=== PATIENT | male | born 1945 | race Caucasian/White ===

== ENCOUNTER → 2017-01-01 | Outpatient (CLI) | payer OTHER ==
[~2017-01-01] MED LIST: ACET500C OR; ANDROGEL TOP; ASCO25TA PO; ASPI325T28 PO; ATOR1TAB21 PO; BABY81CH OR; BACL1TAB9 PO; CALCTAB22 PO; CELE100C PO; CRANBERRY PO; CYCL10TA PO; Cranberry PO; FE G325T PO; FERR325T75 PO; FINA5TAB2 PO; FISH1000 OR; FLOM5CAP PO; GLUC500T3 OR; HYDR-3713 PO; IBUP600T OR; LEVO25TA2 OR; LIDO5DIS EX; METO25TAB PO; MS C15TA8 PO; MULTIVIT PO; NAPR250T OR; OTC PAIN CREAM TOP; PLAV1TAB2 PO; PREDOPD OD; STOO100C PO; VICO; VICO5TAB16 PO; VICODIN PO; VITA400C OR; VITA500T OR; VITAMIN B COMPLE1 OR; VOLT1GEL EX; ZANA4CAP OR; [UNRECOGNIZED DRUG - OTHER] PO; [UNRECOGNIZED DRUG - OTHER] PO; biotin PO; cinnamon PO; flaxseed PO; omega 3 PO; omega PO; vitamin c PO
--- NOTE | 2017-01-12 01:07 | ECWPNPC ---
PATIENT NAME: LOUISE PRECIADO : 1945 GENDER: MALE VISIT DATE: 01/01/2017 DISCHARGE DATE: 01/01/17 1438 VISIT LOCKED DATE TIME: PHYSICIAN: LEELEE LAZO RESOURCE: LEELEE LAZO REASON FOR APPOINTMENT 1. BACK HISTORY OF PRESENT ILLNESS HISTORY OF PRESENT ILLNESS: PAIN THE PATIENT DESCRIBES THE PAIN... THE PATIENT DESCRIBES THE PAIN... THE PATIENT DESCRIBES THE PAIN... PAIN THE PATIENT DESCRIBES THE PAIN... THE PATIENT DESCRIBES THE PAIN... THE PATIENT DESCRIBES THE PAIN... 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 FALL RISK SCREENING: SCREENING :NO FALLS IN THE PAST YEAR CURRENT MEDICATIONS TAKING FISH OIL 1000 MG CAPSULE 1 CAPSULE ORALLY ONCE A DAY TAKING VITAMIN C 500 MG CAPSULE ORALLY TAKING VITAMIN B-COMPLEX TABLET ORALLY TAKING CRANBERRY 450 MG CAPSULE ORALLY TAKING FLAX SEED OIL 1300 MG CAPSULE ORALLY TAKING CINNAMON PLUS CHROMIUM 200-1000 MCG-MG CAPSULE ORALLY TAKING VITAMIN D-3 1000 UNIT CAPSULE 1 CAPSULE ORALLY ONCE A DAY TAKING TYLENOL GO TABS EXTRA STRENGTH 500 MG TABLET CHEWABLE 1 TAB(S) ORALLY EVERY 6 HRS NEEDED TAKING ASPIRIN 325 MG TABLET 1 TABLET ORALLY ONCE A DAY TAKING METOPROLOL TARTRATE 25 MG TABLET 1/2 TABLET ORALLY DAILY TAKING TAMSULOSIN HCL 0.4 MG CAPSULE EXTENDED RELEASE 24 HOUR 1 CAPSULE 30 MINUTES AFTER THE SAME MEAL EACH DAY ORALLY ONCE A DAY TAKING ATORVASTATIN CALCIUM 20 MG TABLET 1 TABLET ORALLY ONCE A DAY TAKING FINASTERIDE 5 MG TABLET 1 TABLET ORALLY ONCE A DAY TAKING LEVOTHYROXINE SODIUM 50 MCG TABLET 1 TABLET ORALLY ONCE A DAY TAKING HYDROCODONE-ACETAMINOPHEN 5-325 MG TABLET 1 TABLET NEEDED ORALLY Q8H MDD3 NOT-TAKING VITAMIN E 400 UNIT CAPSULE 1 CAPSULE ORALLY ONCE A DAY NOT-TAKING DOCUSATE SODIUM 100 MG CAPSULE 1 CAPSULE NEEDED ORALLY ONCE A DAY NOT-TAKING MORPHINE SULFATE 15 MG TABLET 1 TABLET NEEDED ORALLY EVERY 4 HRS NOT-TAKING ZOFRAN 4 MG TABLET 1 TABLET ORALLY PRN NAUSEA MEDICATION LIST REVIEWED AND RECONCILED WITH THE PATIENT PAST MEDICAL HISTORY MSSA SEPSIS DDD MULTIPLE BACK SURGERIES WITH DORSAL COLUMN STIMULATOR HTN BPH PROSTATITIS CAD S/P STENTS AND [place] ALLERGIES N.K.D.A. SURGICAL HISTORY BACK SURGERY 1971 LEFT EYE SURGERY 1981 DETACHED RETINA L EYE 1982 BILATERAL CARPAL TUNNEL 1992 AND 1993 APPENDIX 2001 BACK STIMULATOR 2008 HEART STENTS 2012 RIGHT ROTATOR CUFF REPAIR 2014 BILATERAL CATAARACTS 2014 HOSPITALIZATION/MAJOR DIAGNOSTIC PROCEDURE RELATED TO SURGERIES REVIEW OF SYSTEMS REVIEWED BY: PROVIDER: LEELEE ORO . CONSTITUTIONAL: ANY CHANGE IN YOUR MEDICAL CONDITION? NO . CHILLS NO . FEVER NO . INFECTION: DO YOU HAVE NEW INFECTIONS? NO . DO YOU HAVE HISTORY OF MRSA? NO . MUSCULOSKELETAL: ANY NEW PATTERNS OF PAIN OR NUMBNESS? NO . GASTROENTEROLOGY: ANY NEW CHANGE IN BOWEL CONTROL? NO . GENITOURINARY: ANY NEW CHANGE IN BLADDER CONTROL? NO . IS THERE A CHANCE YOU COULD BE ? NO . HEMATOLOGY/LYMPH: DO YOU TAKE ANY BLOOD THINNERS? (FOR EXAMPLE- COUMADIN, PLAVIX, AGGRENOX, PLATEL, PRADAXA, OR XARELTO) NO . WHEN WAS YOUR LAST DOSE? DATE: TIME: . NEUROLOGY: HAVE YOU FALLEN IN THE PAST 6 MONTHS? NO . ANY NEW EXTREMITY NUMBNESS OR WEAKNESS? NO . CARDIOLOGY: DO YOU HAVE A PACEMAKER OR DEFIBRILLATOR? NO . RESPIRATORY: HAVE YOU BEEN SICK IN THE PAST WEEK? NO . FEVER NO . FLU LIKE SYMPTOMS? NO . COUGH NO . INTEGUMENTARY: DO YOU HAVE ANY RASHES OR OPEN SORES? NO . ALLERGIC/IMMUNO: ARE YOU ALLERGIC TO SHELLFISH OR IV DYE? NO . ANY NEW ALLERGIES? NO . PSYCHIATRIC: DO YOU HAVE THOUGHTS OF HURTING YOURSELF OR SOMEONE ELSE? NO . ARE YOU ABUSED, NEGLECTED, OR IN AN UNSAFE ENVIRONMENT? NO . ENDOCRINOLOGY: ARE YOU DIABETIC? NO . OTHER: DO YOU NEED ANY PRESCRIPTIONS? NO . IF YES, PLEASE LIST: ____ . ANY NEW PROBLEMS WITH YOUR MEDICATIONS? NO . WHEN DID YOU LAST EAT? ____ . WHEN DID YOU LAST DRINK? ____ . WHAT DID YOU LAST DRINK? ____ . NAME OF PERSON DRIVING YOU HOME? ____ . DO YOU HAVE ANY OTHER QUESTIONS OR CONCERNS NO . VITAL SIGNS WT 233.0 LBS, HT 72 IN, BMI 31.60 INDEX, BP 117/69 MM HG, HR 63 /MIN, RR 18 /MIN, TEMP 97.7 F, OXYGEN SAT % 96%, SAFE IN ENV? (Y/N) Y, NA INITIALS TL 1405, REVIEWED BY: EM. EXAMINATION GENERAL EXAMINATION: LUNGS:LUNG SOUNDS ARE CLEAR. HEART:HEART RATE REGULAR. MUSCULOSKELETAL:*, MUSCLE STRENGTH TESTING 5/5 BILATERAL, PALPATION: NEGATIVE FOR PAIN OVER L/S SPINE. NEGATIVE FOR PAIN OVER L/S PARASPINALS. ASSESSMENTS POST LAMINECTOMY SYNDROME - M96.1 (PRIMARY) CHRONIC PRESCRIPTION OPIATE USE - Z79.891 TREATMENT POST LAMINECTOMY SYNDROME REFILL HYDROCODONE-ACETAMINOPHEN TABLET, 5-325 MG, 1 TABLET NEEDED, ORALLY, Q8H MDD3, 30 DAY(S), 90, REFILLS 0 NOTES: ISTOP REGISTRY REVIEWED AND DEMNOSTRATES COMPLLIANCE. BRINGS IN MEDICATIONS WHICH IS APPROPRIATE FOR WHAT WAS DISPENSED. RECENT URINE TOXICOLOGY REVIEWED. NO UNAUTHORIZED MEDICATIONS. NO ILLICIT SUBSTANCES AND PRESCRIBED MEDICATIONS WERE PRESENT. , RISKS AND BENEFITS OF NARCOTIC/OPIOD MEDICATIONS WERE REVIEWED WITH PATIENT - THIS INCLUDES BUT IS NOT LIMITED TO RISK OF DEPENDANCE/DEVELOPMENT OF ADDICTION, MOOD DISTURBANCE AND DEPRESSION, OSTEOPOROSIS, HORMONAL AND LABIDAL CHANGES, RESPIRATORY DEPRESSION AND . PATIENT IS ADVISED NOT TO DRIVE WHILE ON THESE MEDICATIONS. PROCEDURE CODES FA211 ESTABILISHED PATIENT [facility] CHARGE DISPOSITION & COMMUNICATION FOLLOW UP 3 MONTHS ELECTRONICALLY SIGNED BY PREETHI KENNEDY ON 01/11/2017 AT 02:07 PM EDT DISCLAIMER : THIS IS A VISIT SUMMARY EXTRACTED FROM THE [employer] CHART. IT IS NOT A COPY OF THE [employer] PROGRESS NOTE. [facility]
== END ==
LOC: M PAIN 14:20
PROVIDERS: ATTEND Nurse Practitioner Family
DX: M96.1 Postlaminectomy syndrome, not elsewhere classified (principal); M54.5 Low back pain; G89.29 Other chronic pain; Z79.891 Long term (current) use of opiate analgesic; Z79.82 Long term (current) use of aspirin; Z79.899 Other long term (current) drug therapy

== ENCOUNTER → 2017-04-23 | Outpatient (CLI) | payer OTHER ==
--- NOTE | 2017-05-09 01:00 | ECWPNPC ---
PATIENT NAME: LOUISE PRECIADO : 1945 GENDER: MALE VISIT DATE: 04/23/2017 DISCHARGE DATE: 04/23/17 1458 VISIT LOCKED DATE TIME: PHYSICIAN: LEELEE LAZO RESOURCE: LEELEE LAZO REASON FOR APPOINTMENT 1. MEDS HISTORY OF PRESENT ILLNESS HISTORY OF PRESENT ILLNESS: PAIN THE PATIENT DESCRIBES THE PAIN... THE PATIENT DESCRIBES THE PAIN... THE PATIENT DESCRIBES THE PAIN... THE PATIENT DESCRIBES THE PAIN... 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 FALL RISK SCREENING: SCREENING :NO FALLS IN THE PAST YEAR CURRENT MEDICATIONS TAKING FISH OIL 1000 MG CAPSULE 1 CAPSULE ORALLY ONCE A DAY TAKING VITAMIN C 500 MG CAPSULE 2 CAPS ORALLY BID TAKING VITAMIN B-COMPLEX TABLET 1 TAB ORALLY DAILY TAKING CRANBERRY 450 MG CAPSULE 1 CAP ORALLY BID TAKING FLAX SEED OIL 1300 MG CAPSULE 1 CAP ORALLY BID TAKING CINNAMON PLUS CHROMIUM 200-1000 MCG-MG CAPSULE 2 CAPS ORALLY BID TAKING VITAMIN D-3 1000 UNIT CAPSULE 1 CAPSULE ORALLY ONCE A DAY TAKING TYLENOL GO TABS EXTRA STRENGTH 500 MG TABLET CHEWABLE 1 TAB(S) ORALLY EVERY 6 HRS NEEDED TAKING ASPIRIN 325 MG TABLET 1 TABLET ORALLY ONCE A DAY TAKING METOPROLOL TARTRATE 25 MG TABLET 1/2 TABLET ORALLY BID TAKING TAMSULOSIN HCL 0.4 MG CAPSULE EXTENDED RELEASE 24 HOUR 1 CAPSULE 30 MINUTES AFTER THE SAME MEAL EACH DAY ORALLY ONCE A DAY TAKING ATORVASTATIN CALCIUM 20 MG TABLET 1 TABLET ORALLY ONCE A DAY TAKING FINASTERIDE 5 MG TABLET 1 TABLET ORALLY ONCE A DAY TAKING LEVOTHYROXINE SODIUM 50 MCG TABLET 1 TABLET ORALLY ONCE A DAY TAKING HYDROCODONE-ACETAMINOPHEN 5-325 MG TABLET 1 TABLET NEEDED ORALLY Q8H MDD3 TAKING VITAMIN E 400 UNIT CAPSULE 1 CAPSULE ORALLY ONCE A DAY DISCONTINUED DOCUSATE SODIUM 100 MG CAPSULE 1 CAPSULE NEEDED ORALLY ONCE A DAY DISCONTINUED MORPHINE SULFATE 15 MG TABLET 1 TABLET NEEDED ORALLY EVERY 4 HRS DISCONTINUED ZOFRAN 4 MG TABLET 1 TABLET ORALLY PRN NAUSEA MEDICATION LIST REVIEWED AND RECONCILED WITH THE PATIENT PAST MEDICAL HISTORY MSSA SEPSIS DDD MULTIPLE BACK SURGERIES WITH DORSAL COLUMN STIMULATOR HTN BPH PROSTATITIS CAD S/P STENTS AND [place] ALLERGIES N.K.D.A. SOCIAL HISTORY GENERAL: TOBACCO USE ARE YOU A:: FORMER SMOKER , HOW LONG HAS IT BEEN SINCE YOU LAST SMOKED?: > 10 YEARS. ALCOHOL SCREENING POINTS0 INTERPRETATIONNEGATIVE RECREATIONAL DRUG USE DRUG USE?NO CAFFEINE CAFFEINE USE?YES HOW OFTEN AND HOW MUCH? 2 CUPS COFFEE/DAY OCCUPATION: RETIRED. DIET: REGULAR. EXERCISE: WALKS, DAILY. MARITAL STATUS: . OTHERS AT HOME: SPOUSE. YAZIDI [id number] PRESYBETERIAN LANGUAGE LANGUAGES SPOKEN:ESTONIAN EDUCATION LEVEL OF EDUCATION:HIGH SCHOOL GRADUATE LEARNING BARRIERS / SPECIAL NEEDS BARRIERS TO LEARNING?NO HEARING IMPAIRED?YES : DECREASED HEARING BUT CAN'T AFFORD HEARING AIDS VISION IMPAIRED?YES :CORRECTIVE LENSES READING COGNITIVELY IMPAIRED?NO READINESS TO LEARN?YES LEARNING PREFERENCES?YES :TAPES/VIDEOS, DEMONSTRATION/VERBAL INSTRUCTION LEARNING CAPABILITIES PRESENT?YES EMOTIONAL BARRIERS?NO SPECIAL DEVICES?YES : OCC. WALKING STICK IF WALKING LONG DISTANCES CRUMB PACKER NEEDED?NO PAIN CLINIC PFS, CLERGY, PUBLIC HEALTH REFERRALS PFS REFERRAL NEEDED?NO CLERGY REFERRAL NEEDED?NO PUBLIC HEALTH REFERRAL NEEDED?NO HAS THE PATIENT BEEN EDUCATED REGARDING HIS/HER PLAN OF CARE?YES HAS THE PATIENT BEEN EDUCATED REGARDING PAIN, THE RISK FOR PAIN, THE IMPORTANCE OF EFFECTIVE PAIN MANAGEMENT, AND THE PAIN ASSESSMENT PROCESS?YES ADVANCE DIRECTIVES HEALTH CARE PROXY?NO WOULD YOU LIKE MORE INFORMATION?NO STATES HE ALREADY HAS INFORMATION DO YOU HAVE A DNR?NO WOULD YOU LIKE MORE INFORMATION?NO LIVING WILL?NO WOULD YOU LIKE MORE INFORMATION?NO POWER OF SERVICE OR WORK DISPATCHER CHIEF?NO WOULD YOU LIKE MORE INFORMATION?NO DOMESTIC VIOLENCE DO YOU FEEL SAFE IN YOUR ENVIRONMENT?YES 04/23/17 UPDATED AD. REVIEW OF SYSTEMS REVIEWED BY: PROVIDER: LEELEE ORO . CONSTITUTIONAL: ANY CHANGE IN YOUR MEDICAL CONDITION? HE NEEDS REPEAT CARPAL TUNNEL SURG., RIGHT -- THIS IS SCHEDULED FOR 05/21/17 IN [facility] . CHILLS NO . FEVER NO . INFECTION: DO YOU HAVE NEW INFECTIONS? NO . DO YOU HAVE HISTORY OF MRSA? NO . MUSCULOSKELETAL: ANY NEW PATTERNS OF PAIN OR NUMBNESS? YES, NUMBNESS RIGHT HIP X 2 MONTHS. THIS OCCURS AFTER LYING ON THE RIGHT SIDE OR STANDING FOR ANY LENGTH OF TIME. . GASTROENTEROLOGY: ANY NEW CHANGE IN BOWEL CONTROL? NO . GENITOURINARY: ANY NEW CHANGE IN BLADDER CONTROL? NO . IS THERE A CHANCE YOU COULD BE ? NO . HEMATOLOGY/LYMPH: DO YOU TAKE ANY BLOOD THINNERS? (FOR EXAMPLE- COUMADIN, PLAVIX, AGGRENOX, PLATEL, PRADAXA, OR XARELTO) NO . WHEN WAS YOUR LAST DOSE? DATE: TIME: . NEUROLOGY: HAVE YOU FALLEN IN THE PAST 6 MONTHS? NO . ANY NEW EXTREMITY NUMBNESS OR WEAKNESS? NO . CARDIOLOGY: DO YOU HAVE A PACEMAKER OR DEFIBRILLATOR? NO . RESPIRATORY: HAVE YOU BEEN SICK IN THE PAST WEEK? NO . FEVER NO . FLU LIKE SYMPTOMS? NO . COUGH NO . INTEGUMENTARY: DO YOU HAVE ANY RASHES OR OPEN SORES? NO . ALLERGIC/IMMUNO: ARE YOU ALLERGIC TO SHELLFISH OR IV DYE? NO . ANY NEW ALLERGIES? NO . PSYCHIATRIC: DO YOU HAVE THOUGHTS OF HURTING YOURSELF OR SOMEONE ELSE? NO . ARE YOU ABUSED, NEGLECTED, OR IN AN UNSAFE ENVIRONMENT? NO . ENDOCRINOLOGY: ARE YOU DIABETIC? NO . OTHER: DO YOU NEED ANY PRESCRIPTIONS? YES . IF YES, PLEASE LIST: HYDROCODONE . ANY NEW PROBLEMS WITH YOUR MEDICATIONS? NO . WHEN DID YOU LAST EAT? ____ . WHEN DID YOU LAST DRINK? ____ . WHAT DID YOU LAST DRINK? ____ . NAME OF PERSON DRIVING YOU HOME? ____ . DO YOU HAVE ANY OTHER QUESTIONS OR CONCERNS NO . VITAL SIGNS WT 233 LBS, HT 72 IN, BMI 31.60 INDEX, BP 122/63 MM HG, HR 63 /MIN, RR 16 /MIN, TEMP 98.1 F, OXYGEN SAT % 97%, SAFE IN ENV? (Y/N) Y, REVIEWED BY: AD. EXAMINATION GENERAL EXAMINATION: LUNGS:LUNG SOUNDS ARE CLEAR. HEART:HEART RATE REGULAR. MUSCULOSKELETAL:*, MUSCLE STRENGTH TESTING 5/5 BILATERAL, PALPATION: NEGATIVE FOR PAIN OVER L/S SPINE. NEGATIVE FOR PAIN OVER L/S PARASPINALS. ASSESSMENTS POST LAMINECTOMY SYNDROME - M96.1 (PRIMARY) TREATMENT POST LAMINECTOMY SYNDROME REFILL HYDROCODONE-ACETAMINOPHEN TABLET, 5-325 MG, 1 TABLET NEEDED, ORALLY, Q8H MDD3, 30 DAY(S), 90, REFILLS 0 NOTES: ISTOP REGISTRY REVIEWED [id number] RISKS AND BENEFITS OF NARCOTIC/OPIOD MEDICATIONS WERE REVIEWED WITH PATIENT - THIS INCLUDES BUT IS NOT LIMITED TO RISK OF DEPENDANCE/DEVELOPMENT OF ADDICTION, MOOD DISTURBANCE AND DEPRESSION, OSTEOPOROSIS, HORMONAL AND LABIDAL CHANGES, RESPIRATORY DEPRESSION AND . PATIENT IS ADVISED NOT TO DRIVE WHILE ON THESE MEDICATIONS, AND DEMNOSTRATES COMPLLIANCE. BRINGS IN MEDICATIONS WHICH IS APPROPRIATE FOR WHAT WAS DISPENSED. RECENT URINE TOXICOLOGY REVIEWED. NO UNAUTHORIZED MEDICATIONS. NO ILLICIT SUBSTANCES AND PRESCRIBED MEDICATIONS WERE PRESENT.NARCOTIC AGREEMENT UPDATED. PROCEDURE CODES FA211 ESTABILISHED PATIENT [facility] CHARGE DISPOSITION & COMMUNICATION FOLLOW UP 6 MONTHS ELECTRONICALLY SIGNED BY PREETHI KENNEDY ON 05/08/2017 AT 08:48 AM EDT DISCLAIMER : THIS IS A VISIT SUMMARY EXTRACTED FROM THE [employer] CHART. IT IS NOT A COPY OF THE [employer] PROGRESS NOTE. [facility]D
== END ==
LOC: M PAIN 14:15
PROVIDERS: ATTEND Nurse Practitioner Family
DX: M96.1 Postlaminectomy syndrome, not elsewhere classified (principal); I10 Essential (primary) hypertension; Z79.82 Long term (current) use of aspirin; Z79.899 Other long term (current) drug therapy; Z87.891 Personal history of nicotine dependence

== ENCOUNTER → 2017-11-20 | Outpatient (CLI) | payer OTHER | LOC: M PAIN 09:30 | DX: M96.1 Postlaminectomy syndrome, not elsewhere classified (principal); I10 Essential (primary) hypertension; Z79.82 Long term (current) use of aspirin; Z79.899 Other long term (current) drug therapy; Z95.5 Presence of coronary angioplasty implant and graft; Z87.891 Personal history of nicotine dependence; Z86.79 Personal history of other diseases of the circulatory system | CPT/HCPCS: G0463 ==

== ENCOUNTER → 2018-01-21 | Outpatient (CLI) | payer OTHER | LOC: M PAIN 09:30 | DX: M96.1 Postlaminectomy syndrome, not elsewhere classified (principal); I10 Essential (primary) hypertension; I25.2 Old myocardial infarction; Z79.82 Long term (current) use of aspirin; Z79.899 Other long term (current) drug therapy; Z87.891 Personal history of nicotine dependence; Z86.79 Personal history of other diseases of the circulatory system | CPT/HCPCS: G0463 ==

== ENCOUNTER → 2018-04-25 | Outpatient (CLI) | payer OTHER | LOC: M PAIN 10:30 | DX: M96.1 Postlaminectomy syndrome, not elsewhere classified (principal); I10 Essential (primary) hypertension; I25.2 Old myocardial infarction; Z79.82 Long term (current) use of aspirin; Z79.899 Other long term (current) drug therapy; Z86.79 Personal history of other diseases of the circulatory system; Z87.891 Personal history of nicotine dependence | CPT/HCPCS: G0463 ==

== ENCOUNTER → 2018-07-26 | Outpatient (CLI) | payer MEDICARE ==
[~2018-07-26] MED LIST changes: +ASPI-222 PO; -ASPI325T28 PO; +FLOM0.4C39 PO; -FLOM5CAP PO
--- NOTE | 2018-08-13 02:41 | ECWPNPC ---
PATIENT NAME: LOUISE PRECIADO : 1945 GENDER: MALE VISIT DATE: 07/26/2018 DISCHARGE DATE: 07/26/18 1105 VISIT LOCKED DATE TIME: PHYSICIAN: LEELEE LAZO RESOURCE: LEELEE LAZO DISCLAIMER : THIS IS A VISIT SUMMARY EXTRACTED FROM THE [facility] CHART. IT IS NOT A COPY OF THE [employer] PROGRESS NOTE. [place]
== END ==
LOC: M PAIN 10:00
PROVIDERS: ATTEND Nurse Practitioner Family
DX: M96.1 Postlaminectomy syndrome, not elsewhere classified (principal); I10 Essential (primary) hypertension; C61 Malignant neoplasm of prostate; Z79.82 Long term (current) use of aspirin; Z79.899 Other long term (current) drug therapy; Z86.79 Personal history of other diseases of the circulatory system

== ENCOUNTER → 2018-10-24 | Outpatient (CLI) | payer MEDICARE ==
[~2018-10-24] MED LIST changes: -ASCO25TA PO; +METO-346 PO; -METO25TAB PO; -VICO5TAB16 PO; +VICO5TAB17 PO; +VITA1TAB23 PO
--- NOTE | 2018-10-25 02:23 | ECWPNPC ---
PATIENT NAME: LOUISE PRECIADO : 1945 GENDER: MALE VISIT DATE: 10/24/2018 DISCHARGE DATE: 10/24/18 1136 VISIT LOCKED DATE TIME: PHYSICIAN: BHAVNA JOHNSON RESOURCE: BHAVNA JOHNSON REASON FOR APPOINTMENT 1. BACK HISTORY OF PRESENT ILLNESS HISTORY OF PRESENT ILLNESS: PAIN THE PATIENT DESCRIBES THE PAINDURING THE LAST MONTH SEVERITY - PAIN SCORE OF2/10 73 YR OLD MALE HERE FOR F/U ON LOWER BACK PAIN. VAS 2/10, FEELS WELL. HAS DORSAL COLUMN STIMULATOR IN SITU. WOULD LIKE TO DISCUSS HAVING IT REPLACED SOME TIME SOON. FALL RISK SCREENING: SCREENING :NO FALLS REPORTED IN THE LAST YEAR CURRENT MEDICATIONS TAKING FISH OIL 1000 MG CAPSULE 1 CAPSULE ORALLY ONCE A DAY TAKING VITAMIN C 100 MG TABLET 2 CAPS ORALLY BID TAKING VITAMIN B-COMPLEX TABLET 1 TAB ORALLY DAILY TAKING CRANBERRY 1000 MG CAPSULE 1 CAP ORALLY DAILY TAKING FLAX SEED OIL 1300 MG CAPSULE 1 CAP ORALLY DAILY TAKING CINNAMON PLUS CHROMIUM 200-1000 MCG-MG CAPSULE 2 CAPS ORALLY BID TAKING VITAMIN D-3 1000 UNIT CAPSULE 1 CAPSULE ORALLY ONCE A DAY TAKING TYLENOL GO TABS EXTRA STRENGTH 500 MG TABLET CHEWABLE 1 TAB(S) ORALLY EVERY 6 HRS NEEDED TAKING ASPIRIN 325 MG TABLET 1 TABLET ORALLY ONCE A DAY TAKING METOPROLOL TARTRATE 25 MG TABLET 1/2 TABLET ORALLY BID TAKING ATORVASTATIN CALCIUM 20 MG TABLET 1 TABLET ORALLY ONCE A DAY TAKING LEVOTHYROXINE SODIUM 50 MCG TABLET 1 TABLET ORALLY ONCE A DAY TAKING MULTIVITAMIN ADULTS - TABLET ORALLY TAKING COENZYME Q-10 200 MG CAPSULE 1 CAPSULE WITH A MEAL ORALLY ONCE A DAY TAKING RANEXA 500 MG TABLET EXTENDED RELEASE 12 HOUR 1 TABLET ORALLY TWICE A DAY TAKING HYDROCODONE-ACETAMINOPHEN 5-325 MG TABLET 1 TABLET NEEDED ORALLY Q8H PRN PAIN MDD3 TAKING BACLOFEN 20 MG TABLET 1/2 TABLET WITH FOOD OR MILK ORALLY BEFORE BEDTIME TAKING OSTEO BI-FLEX ADV TRIPLE ST - TABLET DIRECTED ORALLY BID NOT-TAKING TAMSULOSIN HCL 0.4 MG CAPSULE EXTENDED RELEASE 24 HOUR 1 CAPSULE 30 MINUTES AFTER THE SAME MEAL EACH DAY ORALLY ONCE A DAY NOT-TAKING FINASTERIDE 5 MG TABLET 1 TABLET ORALLY ONCE A DAY NOT-TAKING VITAMIN E 400 UNIT CAPSULE 1 CAPSULE ORALLY ONCE A DAY MEDICATION LIST REVIEWED AND RECONCILED WITH THE PATIENT PAST MEDICAL HISTORY MSSA SEPSIS DDD MULTIPLE BACK SURGERIES WITH DORSAL COLUMN STIMULATOR HTN BPH PROSTATITIS CAD S/P STENTS AND NM PROSTATE CANCER ALLERGIES N.K.D.A. SURGICAL HISTORY BACK SURGERY 1971 LEFT EYE SURGERY 1981 DETACHED RETINA L EYE 1982 BILATERAL CARPAL TUNNEL 1992 AND 1992 APPENDIX 2001 BACK STIMULATOR 2007 HEART STENTS 2012 RIGHT ROTATOR CUFF REPAIR 2014 BILATERAL CATAARACTS 2014 PROSTATECTOMY 09/2018 FAMILY HISTORY FATHER: , DIAGNOSED WITH CANCER, OTHER MOTHER: , HEART DISEASE 4 BROTHER(S) , 1 SISTER(S) . 2 SON(S) , 3 DAUGHTER(S) - HEALTHY. 2 BROTHERS - 1 W\/ CANCER. SOCIAL HISTORY GENERAL: TOBACCO USE ARE YOU A:FORMER SMOKER HOW LONG HAS IT BEEN SINCE YOU LAST SMOKED?> 10 YEARS LATEX QUESTIONNAIRE LATEX ALLERGY : HAVE YOU EVER DEVELOPED ANY TYPE OF REACTION AFTER HANDLING LATEX PRODUCTS SUCH RUBBER GLOVES, CONDOMS, DIAPHRAGMS, BALLOONS, SOCKS, OR UNDERWEAR?NO LATEX ALLERGY : HAVE YOU EVER DEVELOPED ANY TYPE OF REACTION DURING OR AFTER DENTAL APPOINTMENT, VAGINAL/RECTAL EXAMINATION, SURGICAL PROCEDURE, OR ANY OTHER EXPOSURE?NO LATEX RISK : HAVE YOU EVER HAD ANY DIFFICULTY BREATHING OR HIVES AFTER EATING OR HANDLING ANY FRUITS, OR VEGETABLES; SUCH KIWI, BANANAS, STONE FRUITS, OR CHESTNUTSNO LATEX RISK : DO YOU HAVE A PREVIOUS PERSONAL HISTORY OF MORE THAN NINE SURGERIES, SPINA BIFIDA, OR REPEATED CATHERTIZATIONS? YES - PLEASE INDICATE : > 9 SURGERIES LATEX RISK : ARE YOU FREQUENTLY EXPOSED TO LATEX PRODUCTS IN YOUR OCCUPATION?NO DATE ASKED : 10/24/2018 ALCOHOL SCREENING DID YOU HAVE A DRINK CONTAINING ALCOHOL IN THE PAST YEAR?NO POINTS0 INTERPRETATIONNEGATIVE RECREATIONAL DRUG USE DRUG USE?NO CAFFEINE CAFFEINE USE?YES HOW OFTEN AND HOW MUCH? 2 CUPS COFFEE/DAY [id number] LANGUAGE LANGUAGES SPOKEN:SETSWANA EDUCATION LEVEL OF EDUCATION:HIGH SCHOOL GRADUATE LEARNING BARRIERS / SPECIAL NEEDS BARRIERS TO LEARNING?NO HEARING IMPAIRED?YES : DECREASED HEARING BUT CAN'T AFFORD HEARING AIDS VISION IMPAIRED?YES :CORRECTIVE LENSES READING COGNITIVELY IMPAIRED?NO READINESS TO LEARN?YES LEARNING PREFERENCES?YES :TAPES/VIDEOS, DEMONSTRATION/VERBAL INSTRUCTION LEARNING CAPABILITIES PRESENT?YES EMOTIONAL BARRIERS?NO SPECIAL DEVICES?YES : OCC. WALKING STICK IF WALKING LONG DISTANCES DEMURRAGE CLERK NEEDED?NO DOMESTIC VIOLENCE DO YOU FEEL SAFE IN YOUR ENVIRONMENT?YES OCCUPATION: RETIRED. DIET: REGULAR. EXERCISE: WALKS, DAILY. MARITAL STATUS: . OTHERS AT HOME: SPOUSE. PAIN CLINIC PFS, CLERGY, PUBLIC HEALTH REFERRALS PFS REFERRAL NEEDED?NO CLERGY REFERRAL NEEDED?NO PUBLIC HEALTH REFERRAL NEEDED?NO HAS THE PATIENT BEEN EDUCATED REGARDING HIS/HER PLAN OF CARE?YES HAS THE PATIENT BEEN EDUCATED REGARDING PAIN, THE RISK FOR PAIN, THE IMPORTANCE OF EFFECTIVE PAIN MANAGEMENT, AND THE PAIN ASSESSMENT PROCESS?YES ADVANCE DIRECTIVE ADVANCE DIRECTIVE DISCUSSED WITH PATIENT:YES DECLINES INFORMATION OR ASSISTANCE IN FILLING OUT HCP. 11/20/17 UPDATED BVREVIEWED WITH PATIENT 04/25/18 1051 JSREVIEWED WITH PATIENT 07/26/18 1030 LASREVIEWED WITH PATIENT 10/24/18 1115 JS. HOSPITALIZATION/MAJOR DIAGNOSTIC PROCEDURE RELATED TO SURGERIES REVIEW OF SYSTEMS REVIEWED BY: PROVIDER: ANA MARIA Sierra CONSTITUTIONAL: ANY CHANGE IN YOUR MEDICAL CONDITION? NO . CHILLS NO . FEVER NO . INFECTION: DO YOU HAVE NEW INFECTIONS? NO . DO YOU HAVE HISTORY OF MRSA? NO . MUSCULOSKELETAL: ANY NEW PATTERNS OF PAIN OR NUMBNESS? NO . GASTROENTEROLOGY: ANY NEW CHANGE IN BOWEL CONTROL? NO . GENITOURINARY: ANY NEW CHANGE IN BLADDER CONTROL? YES, STATES FREQUENCY AND INCONTINENCE SINCE PROSTATE REMOVAL, IMPROVING . IS THERE A CHANCE YOU COULD BE ? NO . HEMATOLOGY/LYMPH: DO YOU TAKE ANY BLOOD THINNERS? (FOR EXAMPLE- COUMADIN, PLAVIX, AGGRENOX, PLATEL, PRADAXA, OR XARELTO) NO . WHEN WAS YOUR LAST DOSE? DATE: TIME: . NEUROLOGY: HAVE YOU FALLEN IN THE PAST 12 MONTHS? NO . ANY NEW EXTREMITY NUMBNESS OR WEAKNESS? NO . CARDIOLOGY: DO YOU HAVE A PACEMAKER OR DEFIBRILLATOR? YES, DCS . RESPIRATORY: HAVE YOU BEEN SICK IN THE PAST WEEK? NO . FEVER NO . FLU LIKE SYMPTOMS? NO . COUGH NO . INTEGUMENTARY: DO YOU HAVE ANY RASHES OR OPEN SORES? NO . ALLERGIC/IMMUNO: ARE YOU ALLERGIC TO IV DYE? NO . ANY NEW ALLERGIES? NO . PSYCHIATRIC: DO YOU HAVE THOUGHTS OF HURTING YOURSELF OR SOMEONE ELSE? NO . ARE YOU ABUSED, NEGLECTED, OR IN AN UNSAFE ENVIRONMENT? NO . ENDOCRINOLOGY: ARE YOU DIABETIC? NO . OTHER: DO YOU NEED ANY PRESCRIPTIONS? YES . IF YES, PLEASE LIST: ____HYDROCODONE . ANY NEW PROBLEMS WITH YOUR MEDICATIONS? NO . WHEN DID YOU LAST EAT? ____ . WHEN DID YOU LAST DRINK? ____ . WHAT DID YOU LAST DRINK? ____ . NAME OF PERSON DRIVING YOU HOME? ____ . DO YOU HAVE ANY OTHER QUESTIONS OR CONCERNS NO . VITAL SIGNS WT 222.6 LBS, HT 72 IN, BMI 30.19 INDEX, BP 114/73 MM HG, HR 64 /MIN, RR 18 /MIN, TEMP 97.7 F, OXYGEN SAT % 97%, SAFE IN ENV? (Y/N) YES, NA INITIALS RI 11:05, REVIEWED BY: KAEL. EXAMINATION GENERAL EXAMINATION: GENERAL APPEARANCE:NO ACUTE DISTRESS, WELL NOURISHED AND HYDRATED. PSYCHAPPROPRIATE MOOD AND AFFECT . LUNGS:CLEAR TO AUSCULTATION BILATERALLY, NO WHEEZES, RHONCHI, RALES. HEART:NO MURMURS, REGULAR RATE AND RHYTHM. BACK: NORMAL ALIGNMENT FROM TENDER AT LOWER LUMBAR PARASPINAL MUSCLES SLR NEG BILATERAL REFLEXES 2+. ASSESSMENTS POST LAMINECTOMY SYNDROME - M96.1 (PRIMARY) TREATMENT POST LAMINECTOMY SYNDROME CONTINUE HYDROCODONE-ACETAMINOPHEN TABLET, 5-325 MG, 1 TABLET NEEDED, ORALLY, Q8H PRN PAIN MDD3, 30 DAYS, 90, REFILLS 0 CLINICAL NOTES: ISTOP REGISTRY REVIEWED AND DEMONSTRATES COMPLLIANCE. (REF #[id number] ) BRINGS IN MEDICATIONS WHICH IS APPROPRIATE FOR WHAT WAS DISPENSED. RECENT URINE TOXICOLOGY REVIEWED. NO UNAUTHORIZED MEDICATIONS. NO ILLICIT SUBSTANCES AND PRESCRIBED MEDICATIONS WERE PRESENT. , RISKS AND BENEFITS OF NARCOTIC/OPIOD MEDICATIONS WERE REVIEWED WITH PATIENT - THIS INCLUDES BUT IS NOT LIMITED TO RISK OF DEPENDANCE/DEVELOPMENT OF ADDICTION, MOOD DISTURBANCE AND DEPRESSION, OSTEOPOROSIS, HORMONAL AND LABIDAL CHANGES, RESPIRATORY DEPRESSION AND . PATIENT IS ADVISED NOT TO DRIVE OR DRINK ALCOHOL WHILE ON THESE MEDICATIONS. PROCEDURE CODES FA211 ESTABILISHED PATIENT [facility] CHARGE DISPOSITION & COMMUNICATION FOLLOW UP [address] SOLIS (REASON: TO DISCUSS DORSAL COLUMN STIMULATOR CHANGE) ELECTRONICALLY SIGNED BY PREETHI ESCOBAR ON 10/24/2018 AT 04:57 PM EDT DISCLAIMER : THIS IS A VISIT SUMMARY EXTRACTED FROM THE [facility] CHART. IT IS NOT A COPY OF THE [facility] PROGRESS NOTE. FRANCHESKA
== END ==
LOC: M PAIN 10:30
PROVIDERS: ATTEND Nurse Practitioner Family
DX: M96.1 Postlaminectomy syndrome, not elsewhere classified (principal); I10 Essential (primary) hypertension; N40.0 Benign prostatic hyperplasia without lower urinary tract symptoms; I25.10 Atherosclerotic heart disease of native coronary artery without angina pectoris; I25.2 Old myocardial infarction; Z85.46 Personal history of malignant neoplasm of prostate; Z95.5 Presence of coronary angioplasty implant and graft; Z98.41 Cataract extraction status, right eye; Z98.42 Cataract extraction status, left eye; Z90.49 Acquired absence of other specified parts of digestive tract; Z87.891 Personal history of nicotine dependence; Z96.89 Presence of other specified functional implants; C61 Malignant neoplasm of prostate
CPT/HCPCS: G0463 ×2

== ENCOUNTER → 2018-10-24 | Outpatient (CLI) | payer MEDICARE ==
--- NOTE | 2018-10-24 15:43 | RADONC ---
RADIATION ONCOLOGY CONSULTATION NOTE DATE: 10/24/2018 CHART NUMBER: [id number] DIAGNOSIS: Prostate cancer. STAGE: IIIB, T3b, N0, M0, [place] score 7 (4-3), grade group III, PSA 4.71. ECOG PERFORMANCE STATUS: 0. CONSULTATION NOTE: Mr. Live is a very pleasant 73-year-old white male with the diagnosis what appears to be a stage IIIB, T3b, N0, M0, moderately to poorly differentiated [place] score 7 (4-3) adenocarcinoma of the prostate with an initial PSA of 4.71 who is presenting to us today status post robotic-assisted radical prostatectomy for consideration of postoperative radiation therapy in attempt to increase the likelihood of achieving local control and cure. HISTORY OF PRESENT ILLNESS: The patient was in his usual state of health who was found to have an elevated PSA. On 10/03/2018 the patient underwent a robotic-assisted radical prostatectomy with right inguinal hernia repair with mesh and an umbilical hernia repair as well as pelvic lymph node dissection. Pathology revealed a moderate to poorly differentiated Shari score 7 (4-3) adenocarcinoma of the prostate. There was noted to be extraprostatic extension present and nonfocal. There was local extensive extraprostatic extension in the right lateral region. There was seminal vesicle invasion present on the right. The margin of resection was positive on the right side. The linear extent of the positive margin was 1.2 mm. A total of three lymph nodes were sampled and were negative for malignancy. Since surgery the patient has had some urinary incontinence but has otherwise done quite well. He is now presenting for consideration of postoperative radiation therapy. PAST MEDICAL HISTORY: The patient's past medical history is positive for cardiac stent placement. He has hypothyroidism. He has had a detached retina and carpal tunnel repair. He also had an appendectomy and cataract surgery. ALLERGIES: The patient has no known drug allergies. SOCIAL HISTORY: The patient does not smoke cigarettes nor abuse alcohol. FAMILY HISTORY: The patient's family history is positive with for a father with colon cancer and a brother with liver cancer. REVIEW OF SYSTEMS: The patient's review of systems is positive for impotence as well as urinary incontinence. He also has some hearing loss. It is otherwise noncontributory except for his general back pain for which he received some back simulation. He denies nausea, vomiting, fevers, chills, night sweats, diplopia, headaches, anxiety, depression, anorexia, weight loss, chest pain, rectal bleeding, bone pain other than his back pain or shortness of breath. PHYSICAL EXAMINATION: The patient is a well-developed, well-nourished male in no acute distress. HEENT exam is normocephalic, atraumatic. Extraocular movements are intact. There is no palpable cervical, supraclavicular, infraclavicular, axillary, or inguinal lymphadenopathy present. Lungs are clear to auscultation and percussion. Heart has a regular rate and rhythm. Abdomen is benign with no hepatosplenomegaly, masses, or tenderness. Rectal examination reveals a normal anal sphincter tone. His prostate bed is smooth with no evidence of nodularity. Skeletal examination reveals no tenderness to pressure or percussion of the bony skeleton. Extremities reveal no clubbing, cyanosis, or edema. Neurologic exam is grossly intact as is the remainder of the physical examination. ASSESSMENT: Clearly the patient is a candidate for external beam radiation therapy and I have so informed him. I have discussed with the patient in detail the potential benefits as well as possible acute and chronic sequelae of external beam radiation therapy. We discussed the logistics of treatment planning, simulation and subsequent fractionated daily radiation treatments. I have scheduled the patient for simulation and radiation treatments will follow. Thank you for allowing us to participate in the care of this very pleasant gentleman. If I could be of any further assistance or provide you any information, please free to contact me anytime. cc: MD Ameena Yeh MD Po Lam, MD
== END ==
LOC: M ONCR 08:36
PROVIDERS: ATTEND Radiology Radiation Oncology
DX: C61 Malignant neoplasm of prostate (principal)

== ENCOUNTER → 2018-11-12 | Outpatient (RCR) | payer MEDICARE ==
[2018-11-04 11:48] LABS: HEMATOCRIT 38.7 % (42.0-52.0); HEMOGLOBIN 12.7 g/dl (13.5-17.5); LYMPH % 49.5 % (24.0-44.0); MEAN CORPUSCULAR HEMOGLOBIN 32.4 pg (27.0-33.0); MEAN CORPUSCULAR HGB CONC 32.8 g/dl (32.0-36.5); MEAN CORPUSCULAR VOLUME 98.7 fl (80.0-96.0); NEUTROPHILS # 2.7 10^3/uL (1.8-7.7); NEUTROPHILS % 39.9 % (36.0-66.0); RED BLOOD COUNT 3.92 10^6/uL (4.30-6.10); WHITE BLOOD COUNT 6.8 10^3/uL (4.0-10.0)
--- NOTE | 2018-11-04 15:37 | RADONC ---
RADIATION ONCOLOGY SIMULATION NOTE DATE: 11/04/2018 CHART NUMBER: [id number] SIMULATION NOTE: Mr. Live was taken to the CT scan for CT simulation of his prostate bed field. CT was accomplished without difficulty or discomfort. Radiation treatment planning is underway and radiation treatments will begin subsequently. An immobilization device was created and will be used throughout the course of treatment. It was created without difficulty or discomfort. I was physically present throughout the course of CT simulation.
[~2018-11-12] MED LIST changes: +ANUS2.5C2 PR
--- NOTE | 2018-11-13 08:51 | RADONC ---
RADIATION ONCOLOGY PROGRESS NOTE DATE: 11/11/2018 CHART NUMBER: [id number] Mr. Live underwent his first fraction of radiation today to his prostate bed. He tolerated his first fraction without difficulty. The patient's review of systems remains unchanged. He has no complaints at this time related to his radiation therapy since this was first day of treatment. PHYSICAL EXAMINATION The patient's skin clearly showed no evidence of radiation change, again this was his first day of radiation treatments. The remainder of his physical exam also remained unchanged. Mr. Live tolerated his first fraction without difficulty, and radiation will continue as scheduled.
== END ==
LOC: M ONCR 11-04 10:44
PROVIDERS: ATTEND Radiology Radiation Oncology
DX: C61 Malignant neoplasm of prostate (principal)

== ENCOUNTER → 2018-12-13 | Outpatient (RCR) | payer MEDICARE ==
--- NOTE | 2018-11-18 14:22 | RADONC ---
RADIATION ONCOLOGY PROGRESS NOTE DATE: 11/18/2018 CHART NUMBER: [id number] Mr. Live is thus far at a dose of 900 cGy to his prostate bed and was last treated on November 15. He was not treated today secondary to machine breakdown. REVIEW OF SYSTEMS: As of Sunday the patient's review of systems is noncontributory. He denies nausea, vomiting, fevers, chills, night sweats, diplopia, headaches, anxiety or depression, anorexia, weight loss, visual disturbances, chest pain, urinary or bowel difficulties, bone pain or neurological problems. PHYSICAL EXAMINATION: The patient's skin on Sunday was in excellent condition with no evidence of moist or dry desquamation. The remainder of his physical exam remained unchanged. Mr. Live was tolerating treatments quite well and radiation is scheduled to resume tomorrow if the machine is repaired.
--- NOTE | 2018-11-26 07:12 | RADONC ---
RADIATION ONCOLOGY PROGRESS NOTE DATE: 11/25/2018 CHART #: [id number] Mr. Live is a gentleman with prostate cancer who is being treated with radiotherapy postoperatively. His current dose is 1800 cGy of an anticipated 6660 cGy. REVIEW OF SYSTEMS: He does complain of increasing hemorrhoidal pain. He has had hemorrhoids on the anterior rectal wall before and has treated them with Preparation-H, yet most recently attempts at treating his discomfort with preparation-H have failed to give him any relief. He has a bad back and cannot take sitz baths in the tub. He denies any nausea, vomiting, diarrhea, dysuria, or hematuria, but does complain of blood per rectum. EXAMINATION FINDINGS: The skin within the irradiated volume shows no evidence of erythema or desquamation. No changes are seen in the perirectal area. The remainder of the physical examination is unchanged. IMPRESSION: Tolerating therapy reasonably well, but with activation of internal hemorrhoids which are symptomatic. PLAN: Switched to Anusol-HC suppositories b.i.d. Continue treatments.
--- NOTE | 2018-12-02 17:22 | RADONC ---
RADIATION ONCOLOGY PROGRESS NOTE DATE: 12/02/2018 CHART NUMBER: [id number] Mr. Live is presently a dose of 2700 cGy to his prostate bed and is tolerating treatments quite well at this point with no significant difficulties related to his radiation therapy other than some hemorrhoids. The patient's review of systems is positive for hemorrhoid discomfort but is otherwise noncontributory. He denies nausea, vomiting, fevers, chills, night sweats, diplopia, headaches, anxiety or depression, anorexia, weight loss, visual disturbances, chest pain, urinary or bowel difficulties, bone pain, or neurological problems. PHYSICAL EXAMINATION: The patient's skin is in good condition with no evidence of moist or dry desquamation. The remainder of the physical exam remains unchanged. Mr. Live is tolerating treatments quite well and radiation will continue as scheduled.
--- NOTE | 2018-12-11 08:07 | RADONC ---
RADIATION ONCOLOGY PROGRESS NOTE DATE: 12/10/2018 CHART NUMBER: [id number] PROGRESS NOTE: Mr. Live is presently at a dose of 3600 cGy to his prostate bed and is tolerating his treatments with difficulty. The patient reports he is continuing to have pain with his hemorrhoids. He is using Preparation-H and has just obtained sitz baths. He is also using some stool softeners. The patient has no urinary problems. REVIEW OF SYSTEMS: The patient's review of systems is positive for rectal pain secondary to hemorrhoids, but is otherwise noncontributory. Denies nausea, vomiting, fevers, chills, night sweats, diplopia, headaches, anxiety or depression, anorexia, weight loss, visual disturbances, chest pain, urinary or bowel difficulties, bone pain, or neurological problems. PHYSICAL EXAMINATION: The patient's skin is in good condition with no evidence of moist or dry desquamation. The remainder of his physical exam remains unchanged. Mr. Live is tolerating treatments quite well and radiation will continue as scheduled.
== END ==
LOC: M ONCR 11-13 15:04
PROVIDERS: ATTEND Radiology Radiation Oncology
DX: C61 Malignant neoplasm of prostate (principal)

== ENCOUNTER 2019-01-09 15:05 | Outpatient (RCR) | payer MEDICARE ==
--- NOTE | 2018-12-24 07:15 | RADONC ---
RADIATION ONCOLOGY PROGRESS NOTE DATE: 12/23/2018 CHART NUMBER: [id number] Mr. Live is presently at a dose of 4320 cGy to his prostate bed and is tolerating treatments quite well at this point with no complaints related to his radiation therapy. He is having no urinary or bowel difficulties. No bone pain. REVIEW OF SYSTEMS: The patient's review of systems is noncontributory. Denies nausea, vomiting, fevers, chills, night sweats, diplopia, headaches, anxiety or depression, anorexia, weight loss, visual disturbances, chest pain, urinary or bowel difficulties, bone pain, or neurological problems. PHYSICAL EXAMINATION The patient's skin is in good condition with no evidence of moist or dry desquamation. The remainder of his physical exam remains unchanged. Mr. Live is tolerating treatments quite well and radiation will continue as scheduled.
--- NOTE | 2018-12-31 08:56 | RADONC ---
RADIATION ONCOLOGY PROGRESS NOTE DATE: 12/30/2018 CHART #: [id number] Mr. Live is presently at a dose of 5220 cGy to his prostate bed and is tolerating treatments quite well at this point with no complaints related to his radiation therapy. He is having no significant urinary or bowel difficulties. No bone pain. REVIEW OF SYSTEMS: The patient's review of systems is noncontributory. Denies nausea, vomiting, fevers, chills, night sweats, diplopia, headaches, anxiety or depression, anorexia, weight loss, visual disturbances, chest pain, urinary or bowel difficulties, bone pain, or neurological problems. PHYSICAL EXAMINATION: The patient's skin is in good condition with no evidence of radiation change present. There is no moist or dry desquamation. The remainder of his physical exam remains unchanged. Mr. Live is tolerating treatments quite well and radiation will continue as scheduled.
--- NOTE | 2019-01-07 13:07 | RADONC ---
RADIATION ONCOLOGY PROGRESS NOTE DATE OF SERVICE: 01/06/2019 CHART NUMBER: [id number] Mr. Live, with a diagnosis of prostate cancer, is currently receiving local regional radiotherapy to the prostate and he has achieved a dose thus far of 6120 cGy of an anticipated 6660 cGy. We are treating him to his prostate bed to prevent a recurrence of his known prostate cancer. He has no issues with reference to his disease or to his treatments. REVIEW OF SYSTEMS The patient has nausea in the morning but he attributes this to his taking his thyroid medication, which he must take on an empty stomach. He denies any vomiting, diarrhea, dysuria, hematuria or blood per rectum. His energy level is adequate. He is able to maintain most day-to-day activities without any alteration of his lifestyle. He does complain of some skin irritation in the posterior aspect between his buttock area. EXAMINATION FINDINGS: He has a 1-2 plus erythematous blush in the posterior sacral area but no evidence of desquamation. No palpable peripheral lymphadenopathy is appreciated. The remainder of the physical examination is unchanged. IMPRESSION: Tolerating therapy well. PLAN: Treatments to continue.
[~2019-01-09 15:05] MED LIST changes: +MM S100C PO; -STOO100C PO
--- NOTE | 2019-01-10 08:32 | RADONC ---
RADIATION ONCOLOGY THERAPY TREATMENT SUMMARY: DATE: 01/09/2019 CHART NUMBER: [id number] DIAGNOSIS: Prostate cancer. STAGE: III B, T3b, N0, M0, Shari score 7 (4+ 3), grade group 3, PSA 4.71. ECOG PERFORMANCE STATUS: 0. PLAN OF RADIOTHERAPY: POSTOPERATIVE: Radiation was administered in a high risk the patient in order to improve the chances of local regional recurrence prevention. DATE RADIOTHERAPY STARTED: 11/11/2018. DATE RADIOTHERAPY COMPLETED: 01/09/2019 DOSE: In summary the patient received a dose of 6660cGy in 37 treatment over 59 elapsed days. Patient received an initial 4500 cGy administered in 25 fractions over 43 elapsed days. Treatments were given via a three-dimensional conformal radiotherapy technique. The patient was treated isocenter with a 15 MV photon beam. After the completion of 4500 cGy an additional 2160 cGy were administered via 3D conformal radiotherapy to the prostate bed bringing the total dose to the aforementioned 6660 cGy. Again a 15 MV photon beam was utilized for treatment delivery. Prior to treatment delivery, localization was accomplished upon our CT simulator where upon treatment portals were defined by the use of multiple leaf collimators. STATUS OF TUMOR: There was neither clinical evidence of local or regional recurrence nor clinical evidence of distant metastatic spread during his course of radiotherapy. TOLERANCE IN GENERAL: Treatments were quite well tolerated as he denied any nausea, vomiting, diarrhea, dysuria, hematuria or blood per rectum. His energy level remained relatively constant and he was able to maintain most day-to-day activities without any significant alteration of his lifestyle. DISPOSITION: Return to clinic in 1 month for a post radiotherapy followup visit with a PSA evaluation. He was instructed to return to his referring physicians as per their directions and instructions. Thank you for allowing us the opportunity of participation in the management of this very fine gentleman. cc: Naveen Lynn MD [facility]
== END 2019-01-12 ==
LOC: M ONCR 15:05
PROVIDERS: ATTEND Radiology Radiation Oncology
DX: C61 Malignant neoplasm of prostate (principal)

== ENCOUNTER → 2019-01-24 | Outpatient (CLI) | payer MEDICARE ==
--- NOTE | 2019-01-28 01:54 | ECWPNPC ---
PATIENT NAME: LOUISE PRECIADO : 1945 GENDER: MALE VISIT DATE: 01/24/2019 DISCHARGE DATE: 01/24/19 1022 VISIT LOCKED DATE TIME: PHYSICIAN: JAMES SOLIS MD RESOURCE: JAMES SOLIS MD REASON FOR APPOINTMENT 1. TO DISCUSS DORSAL COLUMN STIMULATOR CHANGE HISTORY OF PRESENT ILLNESS HISTORY OF PRESENT ILLNESS: PAIN THE PATIENT DESCRIBES THE PAIN... 73 YEAR OLD MALE PATIENT WITH A HISTORY OF CHRONIC LOW BACK PAIN. THE PATIENT DESCRIBES THE PAIN ACHING, SHARP, CONTINUOUS, AND DAILY WITH A PAIN SCORE OF 2-7/10 DEPENDING ON PHYSICAL ACTIVITY. THE PATIENT SAYS HE IS HAVING ISSUES WITH HIS DORSAL COLUMN STIMULATOR'S BATTERY. THE PATIENT SAYS THE DCS BATTERY IS TAKING LONGER THAN USUAL TO CHARGE, DOES NOT FULLY CHARGE, AND ONLY LASTS A FEW DAYS BEFORE NEEDING TO BE RECHARGED AGAIN. PATIENT DENIES UNEXPLAINABLE WEIGHT LOSS, FEVER, CHILLS, NEW CHANGES ON HIS URINARY OR BOWEL CONTROL. FALL RISK SCREENING: SCREENING :NO FALLS REPORTED IN THE LAST YEAR CURRENT MEDICATIONS TAKING FISH OIL 1000 MG CAPSULE 1 CAPSULE ORALLY ONCE A DAY TAKING VITAMIN C 100 MG TABLET 2 CAPS ORALLY BID TAKING VITAMIN B-COMPLEX TABLET 1 TAB ORALLY DAILY TAKING CRANBERRY 1000 MG CAPSULE 1 CAP ORALLY DAILY TAKING FLAX SEED OIL 1300 MG CAPSULE 1 CAP ORALLY DAILY TAKING CINNAMON PLUS CHROMIUM 200-1000 MCG-MG CAPSULE 2 CAPS ORALLY BID TAKING VITAMIN D-3 1000 UNIT CAPSULE 1 CAPSULE ORALLY ONCE A DAY TAKING TYLENOL GO TABS EXTRA STRENGTH 500 MG TABLET CHEWABLE 1 TAB(S) ORALLY EVERY 6 HRS NEEDED TAKING ASPIRIN 325 MG TABLET 1 TABLET ORALLY ONCE A DAY TAKING METOPROLOL TARTRATE 25 MG TABLET 1/2 TABLET ORALLY BID TAKING ATORVASTATIN CALCIUM 20 MG TABLET 1 TABLET ORALLY ONCE A DAY TAKING LEVOTHYROXINE SODIUM 50 MCG TABLET 1 TABLET ORALLY ONCE A DAY TAKING MULTIVITAMIN ADULTS - TABLET ORALLY TAKING COENZYME Q-10 200 MG CAPSULE 1 CAPSULE WITH A MEAL ORALLY ONCE A DAY TAKING RANEXA 500 MG TABLET EXTENDED RELEASE 12 HOUR 1 TABLET ORALLY TWICE A DAY TAKING BACLOFEN 20 MG TABLET 1/2 TABLET WITH FOOD OR MILK ORALLY BEFORE BEDTIME TAKING OSTEO BI-FLEX ADV TRIPLE ST - TABLET DIRECTED ORALLY BID TAKING BACLOFEN 10 MG TABLET 1/2 TABLET WITH FOOD OR MILK ORALLY TAKE AT 8 AM, 12 NOON, AND 4 PM TAKING HYDROCODONE-ACETAMINOPHEN 5-325 MG TABLET 1 TABLET NEEDED ORALLY Q8H PRN PAIN MDD3 NOT-TAKING TAMSULOSIN HCL 0.4 MG CAPSULE EXTENDED RELEASE 24 HOUR 1 CAPSULE 30 MINUTES AFTER THE SAME MEAL EACH DAY ORALLY ONCE A DAY NOT-TAKING FINASTERIDE 5 MG TABLET 1 TABLET ORALLY ONCE A DAY NOT-TAKING VITAMIN E 400 UNIT CAPSULE 1 CAPSULE ORALLY ONCE A DAY MEDICATION LIST REVIEWED AND RECONCILED WITH THE PATIENT PAST MEDICAL HISTORY MSSA SEPSIS DDD MULTIPLE BACK SURGERIES WITH DORSAL COLUMN STIMULATOR HTN BPH PROSTATITIS CAD S/P STENTS AND MD PROSTATE CANCER ALLERGIES N.K.D.A. SURGICAL HISTORY BACK SURGERY 1971 LEFT EYE SURGERY 1980 DETACHED RETINA L EYE 1982 BILATERAL CARPAL TUNNEL 1992 AND 1992 APPENDIX 2000 BACK STIMULATOR 2007 HEART STENTS 2011 RIGHT ROTATOR CUFF REPAIR 2013 BILATERAL CATAARACTS 2014 PROSTATECTOMY 09/2018 FAMILY HISTORY FATHER: , DIAGNOSED WITH CANCER, OTHER MOTHER: , HEART DISEASE 4 BROTHER(S) , 1 SISTER(S) . 2 SON(S) , 3 DAUGHTER(S) - HEALTHY. 2 BROTHERS - 1 W\/ CANCER. SOCIAL HISTORY GENERAL: TOBACCO USE ARE YOU A:FORMER SMOKER HOW LONG HAS IT BEEN SINCE YOU LAST SMOKED?> 10 YEARS OTHERS AT HOME: SPOUSE. EDUCATION LEVEL OF EDUCATION:HIGH SCHOOL GRADUATE DIET: REGULAR. LANGUAGE LANGUAGES SPOKEN:URDU DOMESTIC VIOLENCE DO YOU FEEL SAFE IN YOUR ENVIRONMENT?YES RECREATIONAL DRUG USE DRUG USE?NO EXERCISE: WALKS, DAILY. LEARNING BARRIERS / SPECIAL NEEDS BARRIERS TO LEARNING?NO HEARING IMPAIRED?YES : DECREASED HEARING BUT CAN'T AFFORD HEARING AIDS VISION IMPAIRED?YES :CORRECTIVE LENSES READING COGNITIVELY IMPAIRED?NO READINESS TO LEARN?YES LEARNING PREFERENCES?YES :TAPES/VIDEOS, DEMONSTRATION/VERBAL INSTRUCTION LEARNING CAPABILITIES PRESENT?YES EMOTIONAL BARRIERS?NO SPECIAL DEVICES?YES : OCC. WALKING STICK IF WALKING LONG DISTANCES BUILDING OPERATOR NEEDED?NO PAIN CLINIC PFS, CLERGY, PUBLIC HEALTH REFERRALS PFS REFERRAL NEEDED?NO CLERGY REFERRAL NEEDED?NO PUBLIC HEALTH REFERRAL NEEDED?NO HAS THE PATIENT BEEN EDUCATED REGARDING HIS/HER PLAN OF CARE?YES HAS THE PATIENT BEEN EDUCATED REGARDING PAIN, THE RISK FOR PAIN, THE IMPORTANCE OF EFFECTIVE PAIN MANAGEMENT, AND THE PAIN ASSESSMENT PROCESS?YES LATEX QUESTIONNAIRE LATEX ALLERGY : HAVE YOU EVER DEVELOPED ANY TYPE OF REACTION AFTER HANDLING LATEX PRODUCTS SUCH RUBBER GLOVES, CONDOMS, DIAPHRAGMS, BALLOONS, SOCKS, OR UNDERWEAR?NO LATEX ALLERGY : HAVE YOU EVER DEVELOPED ANY TYPE OF REACTION DURING OR AFTER DENTAL APPOINTMENT, VAGINAL/RECTAL EXAMINATION, SURGICAL PROCEDURE, OR ANY OTHER EXPOSURE?NO LATEX RISK : HAVE YOU EVER HAD ANY DIFFICULTY BREATHING OR HIVES AFTER EATING OR HANDLING ANY FRUITS, OR VEGETABLES; SUCH KIWI, BANANAS, STONE FRUITS, OR CHESTNUTSNO LATEX RISK : DO YOU HAVE A PREVIOUS PERSONAL HISTORY OF MORE THAN NINE SURGERIES, SPINA BIFIDA, OR REPEATED CATHERTIZATIONS? YES - PLEASE INDICATE : > 9 SURGERIES LATEX RISK : ARE YOU FREQUENTLY EXPOSED TO LATEX PRODUCTS IN YOUR OCCUPATION?NO DATE ASKED : 10/24/2018 CAFFEINE CAFFEINE USE?YES HOW OFTEN AND HOW MUCH? 2 CUPS COFFEE/DAY ADVANCE DIRECTIVE ADVANCE DIRECTIVE DISCUSSED WITH PATIENT:YES DECLINES INFORMATION OR ASSISTANCE IN FILLING OUT HCP. RESTORATIONISM [id number] CONGREGATION MARITAL STATUS: . ALCOHOL SCREENING DID YOU HAVE A DRINK CONTAINING ALCOHOL IN THE PAST YEAR?NO POINTS0 INTERPRETATIONNEGATIVE OCCUPATION: RETIRED. 11/20/17 UPDATED BVREVIEWED WITH PATIENT 04/25/18 1051 JSREVIEWED WITH PATIENT 07/26/18 1030 LASREVIEWED WITH PATIENT 10/24/18 1115 JS. HOSPITALIZATION/MAJOR DIAGNOSTIC PROCEDURE RELATED TO SURGERIES REVIEW OF SYSTEMS REVIEWED BY: PROVIDER: JAMES SOLIS MD . CONSTITUTIONAL: ANY CHANGE IN YOUR MEDICAL CONDITION? NO . CHILLS NO . FEVER NO . INFECTION: DO YOU HAVE NEW INFECTIONS? NO . DO YOU HAVE HISTORY OF MRSA? NO . MUSCULOSKELETAL: ANY NEW PATTERNS OF PAIN OR NUMBNESS? NO . GASTROENTEROLOGY: ANY NEW CHANGE IN BOWEL CONTROL? NO . GENITOURINARY: ANY NEW CHANGE IN BLADDER CONTROL? YES PT HAD A PROSTATECTOMY FOR PROSTATE CANCER, NOW REPORTS IMPROVEMENT IN HIS BLADDER CONTROL . IS THERE A CHANCE YOU COULD BE ? NO . HEMATOLOGY/LYMPH: DO YOU TAKE ANY BLOOD THINNERS? (FOR EXAMPLE- COUMADIN, PLAVIX, AGGRENOX, PLATEL, PRADAXA, OR XARELTO) NO . WHEN WAS YOUR LAST DOSE? DATE: TIME: . NEUROLOGY: HAVE YOU FALLEN IN THE PAST 12 MONTHS? NO . ANY NEW EXTREMITY NUMBNESS OR WEAKNESS? NO . CARDIOLOGY: DO YOU HAVE A PACEMAKER OR DEFIBRILLATOR? DORSAL COLUMN STIMULATOR . RESPIRATORY: HAVE YOU BEEN SICK IN THE PAST WEEK? NO . FEVER NO . FLU LIKE SYMPTOMS? NO . COUGH NO . INTEGUMENTARY: DO YOU HAVE ANY RASHES OR OPEN SORES? NO . ALLERGIC/IMMUNO: ARE YOU ALLERGIC TO IV DYE? NO . ANY NEW ALLERGIES? NO . PSYCHIATRIC: DO YOU HAVE THOUGHTS OF HURTING YOURSELF OR SOMEONE ELSE? NO . ARE YOU ABUSED, NEGLECTED, OR IN AN UNSAFE ENVIRONMENT? NO . ENDOCRINOLOGY: ARE YOU DIABETIC? NO . OTHER: DO YOU NEED ANY PRESCRIPTIONS? YES . IF YES, PLEASE LIST: ____HYDROCODONE/ACETAMINOPHEN 5/325 . ANY NEW PROBLEMS WITH YOUR MEDICATIONS? NO . WHEN DID YOU LAST EAT? ____ . WHEN DID YOU LAST DRINK? ____ . WHAT DID YOU LAST DRINK? ____ . NAME OF PERSON DRIVING YOU HOME? ____ . DO YOU HAVE ANY OTHER QUESTIONS OR CONCERNS NO . VITAL SIGNS WT 214.0 LBS, HT 72 IN, BMI 29.02 INDEX, BP 114/61 MM HG, HR 63 /MIN, RR 18 /MIN, TEMP 98.4 F, OXYGEN SAT % 97%, SAFE IN ENV? (Y/N) YES, NA INITIALS AW 0917, REVIEWED BY: CATHERINE. EXAMINATION GENERAL EXAMINATION: PATIENT IS ALERT O X 3 AND COOPERATIVE. TENDERNESS IN THE LOW BACK AREA. DCS IS CURRENTLY WORKING FOR HIM. ASSESSMENTS LUMBAR POST-LAMINECTOMY SYNDROME - M96.1 (PRIMARY) TREATMENT LUMBAR POST-LAMINECTOMY SYNDROME CLINICAL NOTES: WE DISCUSSED SEVERAL ISSUES WITH MR. PRECIADO'S PAIN MANAGEMENT CASE. I AM REFERRING THE PATIENT TO MIGUELANGEL PRECIADO FOR A BATTERY CHANGE DUE TO CHARGING ISSUES AND ALSO TO UPGRADE TO A NEW MRI COMPATIBLE BATTERY SO NOT TO INTERFERE WITH FUTURE MRI'S. THE PATIENT WILL FOLLOW UP WITH THE NURSE PRACTITIONER IN SEVERAL WEEKS. INSTRUCTIONS WERE GIVEN, QUESTIONS WERE ANSWERED, PATIENT REPORTS UNDERSTANDING AND AGREES WITH THE PLAN. I, BISI FLOREZ, DOCUMENTED THE ABOVE INFORMATION ACTING A SCRIBE FOR DR. SOLIS. I HAVE REVIEWED THE ABOVE DOCUMENT, WRITTEN BY BISI DEL ROSARIO AND I VERIFY THAT IT IS ACCURATE. . PROCEDURE CODES FA211 ESTABILISHED PATIENT [facility] CHARGE G8427 CURRENT MEDS W/DOSAGES DOCUMENTED G8730 PAIN ASSESS POS TOOL F/U PLAN DOC DISPOSITION & COMMUNICATION FOLLOW UP 4 WEEKS (REASON: F/U WITH ALYSSA HERNANDEZ, REFER TO MIGUELANG[facility] ILANA) ELECTRONICALLY SIGNED BY JAMES SOLIS MD, MD ON 01/27/2019 AT 01:31 PM EDT DISCLAIMER : THIS IS A VISIT SUMMARY EXTRACTED FROM THE [employer] CHART. IT IS NOT A COPY OF THE [employer] PROGRESS NOTE. MTDD
== END ==
LOC: M PAIN 09:30
PROVIDERS: ATTEND Anesthesiology
DX: M96.1 Postlaminectomy syndrome, not elsewhere classified (principal); M54.5 Low back pain; I10 Essential (primary) hypertension; N40.0 Benign prostatic hyperplasia without lower urinary tract symptoms; I25.10 Atherosclerotic heart disease of native coronary artery without angina pectoris; Z85.46 Personal history of malignant neoplasm of prostate; Z95.5 Presence of coronary angioplasty implant and graft; Z87.891 Personal history of nicotine dependence; Z79.82 Long term (current) use of aspirin; Z79.891 Long term (current) use of opiate analgesic; Z79.899 Other long term (current) drug therapy

== ENCOUNTER → 2019-02-12 | Outpatient (CLI) | payer MEDICARE ==
--- NOTE | 2019-02-13 07:57 | RADONC ---
RADIATION ONCOLOGY FOLLOWUP NOTE DATE: 02/12/2019 CHART #: [id number] DIAGNOSIS: Prostate cancer. STAGE: III B, [id number], Loysburg score 7 (4-3) grade group III, PSA 4.71. ECOG PERFORMANCE STATUS: 0. FOLLOWUP NOTE Mr. Live is a very pleasant 73-year-old white male with the diagnosis of a stage III B, [id number], moderate to poorly differentiated Loysburg score 7 (4-3) adenocarcinoma of the prostate with an initial PSA score 4.71 who is presenting to us today for routine followup visit 1 month post completion of external beam radiation therapy. The patient presents today reporting that he is doing quite well with no complaints at this time related to his radiation therapy or disease. He is having no new urinary or bowel difficulties and no bone pain. REVIEW OF SYSTEMS: The patient's review of systems is noncontributory. Denies nausea, vomiting, fevers, chills, night sweats, diplopia, headaches, anxiety or depression, anorexia, weight loss, visual disturbances, chest pain, urinary or bowel difficulties, bone pain, or neurological problems. PHYSICAL EXAMINATION: The patient is a well-developed, well-nourished male in no acute distress. HEENT exam is normocephalic, atraumatic. Extraocular movements are intact. There is no palpable cervical, supraclavicular, infraclavicular, axillary, or inguinal lymphadenopathy present. Lungs are clear to auscultation and percussion. Heart has a regular rate and rhythm. Abdomen is benign with no hepatosplenomegaly, masses, or tenderness. Rectal examination reveals a normal anal sphincter tone. His prostate bed is smooth with no evidence of nodularity. Skeletal examination reveals no tenderness to pressure or percussion of the bony skeleton. Extremities reveal no clubbing, cyanosis, or edema. Neurologic exam is grossly intact, as is the remainder of the physical examination. ASSESSMENT: The patient is clinically KATHRYN at this time and will be seen by us again in 6 months for further followup. He will also continue to be followed by his other physicians as well. A PSA level was done on 02/06/2019 and is 0.06. The patient is also scheduled to see Dr. Murillo April. cc: MD Ameena Yeh MD Po Lam, MD
== END ==
LOC: M ONCR 15:06
PROVIDERS: ATTEND Radiology Radiation Oncology
DX: C61 Malignant neoplasm of prostate (principal)

== ENCOUNTER → 2019-02-24 | Outpatient (CLI) | payer MEDICARE ==
--- NOTE | 2019-02-26 00:51 | ECWPNPC ---
PATIENT NAME: LOUISE PRECIADO : 1945 GENDER: MALE VISIT DATE: 02/24/2019 DISCHARGE DATE: 02/24/19 0000 VISIT LOCKED DATE TIME: PHYSICIAN: ALYSSA HERNDON RESOURCE: ALYSSA HERNDON REASON FOR APPOINTMENT 1. PER HISTORY OF PRESENT ILLNESS HISTORY OF PRESENT ILLNESS: PAIN THE PATIENT DESCRIBES THE PAIN... 73 YEAR OLD MALE IN FOR FOLLOW UP. HE HAS MET WITH DR. PRECIADO AND STATES HE HAD ORDERED A CT BUT THE PATIENT HAS YET TO HEAR FROM THE RADIOLOGY DEPARTMENT TO GET THE CT DONE. FALL RISK SCREENING: SCREENING :NO FALLS REPORTED IN THE LAST YEAR CURRENT MEDICATIONS TAKING FISH OIL 1000 MG CAPSULE 1 CAPSULE ORALLY ONCE A DAY TAKING VITAMIN C 100 MG TABLET 2 CAPS ORALLY BID TAKING VITAMIN B-COMPLEX TABLET 1 TAB ORALLY DAILY TAKING CRANBERRY 1000 MG CAPSULE 1 CAP ORALLY DAILY TAKING FLAX SEED OIL 1300 MG CAPSULE 1 CAP ORALLY DAILY TAKING CINNAMON PLUS CHROMIUM 200-1000 MCG-MG CAPSULE 2 CAPS ORALLY BID TAKING VITAMIN D-3 1000 UNIT CAPSULE 1 CAPSULE ORALLY ONCE A DAY TAKING TYLENOL GO TABS EXTRA STRENGTH 500 MG TABLET CHEWABLE 1 TAB(S) ORALLY EVERY 6 HRS NEEDED TAKING ASPIRIN 325 MG TABLET 1 TABLET ORALLY ONCE A DAY TAKING METOPROLOL TARTRATE 25 MG TABLET 1/2 TABLET ORALLY BID TAKING ATORVASTATIN CALCIUM 20 MG TABLET 1 TABLET ORALLY ONCE A DAY TAKING LEVOTHYROXINE SODIUM 50 MCG TABLET 1 TABLET ORALLY ONCE A DAY TAKING MULTIVITAMIN ADULTS - TABLET ORALLY TAKING COENZYME Q-10 200 MG CAPSULE 1 CAPSULE WITH A MEAL ORALLY ONCE A DAY TAKING RANEXA 500 MG TABLET EXTENDED RELEASE 12 HOUR 1 TABLET ORALLY TWICE A DAY TAKING BACLOFEN 20 MG TABLET 1/2 TABLET WITH FOOD OR MILK ORALLY BEFORE BEDTIME TAKING OSTEO BI-FLEX ADV TRIPLE ST - TABLET DIRECTED ORALLY BID TAKING BACLOFEN 10 MG TABLET 1/2 TABLET WITH FOOD OR MILK ORALLY TAKE AT 8 AM, 12 NOON, AND 4 PM TAKING HYDROCODONE-ACETAMINOPHEN 5-325 MG TABLET 1 TABLET NEEDED ORALLY Q8H PRN PAIN MDD3 NOT-TAKING TAMSULOSIN HCL 0.4 MG CAPSULE EXTENDED RELEASE 24 HOUR 1 CAPSULE 30 MINUTES AFTER THE SAME MEAL EACH DAY ORALLY ONCE A DAY NOT-TAKING FINASTERIDE 5 MG TABLET 1 TABLET ORALLY ONCE A DAY NOT-TAKING VITAMIN E 400 UNIT CAPSULE 1 CAPSULE ORALLY ONCE A DAY MEDICATION LIST REVIEWED AND RECONCILED WITH THE PATIENT PAST MEDICAL HISTORY MSSA SEPSIS DDD MULTIPLE BACK SURGERIES WITH DORSAL COLUMN STIMULATOR HTN BPH PROSTATITIS CAD S/P STENTS AND AR PROSTATE CANCER - NOW CANCER FREE PER PT 02/2019 ALLERGIES N.K.D.A. SURGICAL HISTORY BACK SURGERY 1971 LEFT EYE SURGERY 1980 DETACHED RETINA L EYE 1982 BILATERAL CARPAL TUNNEL 1992 AND 1992 APPENDIX 2001 BACK STIMULATOR 2007 HEART STENTS 2011 RIGHT ROTATOR CUFF REPAIR 2013 BILATERAL CATAARACTS 2014 PROSTATECTOMY 09/2018 FAMILY HISTORY FATHER: , DIAGNOSED WITH CANCER, OTHER MOTHER: , HEART DISEASE 4 BROTHER(S) , 1 SISTER(S) . 2 SON(S) , 3 DAUGHTER(S) - HEALTHY. 2 BROTHERS - 1 W\/ CANCER. SOCIAL HISTORY GENERAL: TOBACCO USE ARE YOU A:FORMER SMOKER HOW LONG HAS IT BEEN SINCE YOU LAST SMOKED?> 10 YEARS OTHERS AT HOME: SPOUSE. EDUCATION LEVEL OF EDUCATION:HIGH SCHOOL GRADUATE DIET: REGULAR. LANGUAGE LANGUAGES SPOKEN:[place]JIK DOMESTIC VIOLENCE DO YOU FEEL SAFE IN YOUR ENVIRONMENT?YES RECREATIONAL DRUG USE DRUG USE?NO EXERCISE: WALKS, DAILY. LEARNING BARRIERS / SPECIAL NEEDS BARRIERS TO LEARNING?NO HEARING IMPAIRED?YES : DECREASED HEARING BUT CAN'T AFFORD HEARING AIDS VISION IMPAIRED?YES :CORRECTIVE LENSES READING COGNITIVELY IMPAIRED?NO READINESS TO LEARN?YES LEARNING PREFERENCES?YES :TAPES/VIDEOS, DEMONSTRATION/VERBAL INSTRUCTION LEARNING CAPABILITIES PRESENT?YES EMOTIONAL BARRIERS?NO SPECIAL DEVICES?YES : OCC. WALKING STICK IF WALKING LONG DISTANCES MANAGER MED SURG NEEDED?NO PAIN CLINIC PFS, CLERGY, PUBLIC HEALTH REFERRALS PFS REFERRAL NEEDED?NO CLERGY REFERRAL NEEDED?NO PUBLIC HEALTH REFERRAL NEEDED?NO HAS THE PATIENT BEEN EDUCATED REGARDING HIS/HER PLAN OF CARE?YES HAS THE PATIENT BEEN EDUCATED REGARDING PAIN, THE RISK FOR PAIN, THE IMPORTANCE OF EFFECTIVE PAIN MANAGEMENT, AND THE PAIN ASSESSMENT PROCESS?YES LATEX QUESTIONNAIRE LATEX ALLERGY : HAVE YOU EVER DEVELOPED ANY TYPE OF REACTION AFTER HANDLING LATEX PRODUCTS SUCH RUBBER GLOVES, CONDOMS, DIAPHRAGMS, BALLOONS, SOCKS, OR UNDERWEAR?NO LATEX ALLERGY : HAVE YOU EVER DEVELOPED ANY TYPE OF REACTION DURING OR AFTER DENTAL APPOINTMENT, VAGINAL/RECTAL EXAMINATION, SURGICAL PROCEDURE, OR ANY OTHER EXPOSURE?NO LATEX RISK : HAVE YOU EVER HAD ANY DIFFICULTY BREATHING OR HIVES AFTER EATING OR HANDLING ANY FRUITS, OR VEGETABLES; SUCH KIWI, BANANAS, STONE FRUITS, OR CHESTNUTSNO LATEX RISK : DO YOU HAVE A PREVIOUS PERSONAL HISTORY OF MORE THAN NINE SURGERIES, SPINA BIFIDA, OR REPEATED CATHERIZATIONS? YES - PLEASE INDICATE : > 9 SURGERIES LATEX RISK : ARE YOU FREQUENTLY EXPOSED TO LATEX PRODUCTS IN YOUR OCCUPATION?NO DATE ASKED : 10/24/2018 CAFFEINE CAFFEINE USE?YES HOW OFTEN AND HOW MUCH? 2 CUPS COFFEE/DAY ADVANCE DIRECTIVE ADVANCE DIRECTIVE DISCUSSED WITH PATIENT:YES DECLINES INFORMATION OR ASSISTANCE IN FILLING OUT HCP. SIKH [id number] MUSLIM MARITAL STATUS: . ALCOHOL SCREENING DID YOU HAVE A DRINK CONTAINING ALCOHOL IN THE PAST YEAR?NO POINTS0 INTERPRETATIONNEGATIVE OCCUPATION: RETIRED. 11/20/17 UPDATED BVREVIEWED WITH PATIENT 04/25/18 1051 JSREVIEWED WITH PATIENT 07/26/18 1030 LASREVIEWED WITH PATIENT 10/24/18 1115 JSREVIEWED WITH PATIENT 02/24/19 1000 LAS. HOSPITALIZATION/MAJOR DIAGNOSTIC PROCEDURE RELATED TO SURGERIES REVIEW OF SYSTEMS REVIEWED BY: PROVIDER: ALEX FERREIRA . CONSTITUTIONAL: ANY CHANGE IN YOUR MEDICAL CONDITION? PT REPORTS HE IS NOW CANCER FREE. . CHILLS NO . FEVER NO . INFECTION: DO YOU HAVE NEW INFECTIONS? NO . DO YOU HAVE HISTORY OF MRSA? NO . MUSCULOSKELETAL: ANY NEW PATTERNS OF PAIN OR NUMBNESS? NO . GASTROENTEROLOGY: ANY NEW CHANGE IN BOWEL CONTROL? NO . GENITOURINARY: ANY NEW CHANGE IN BLADDER CONTROL? NO . IS THERE A CHANCE YOU COULD BE ? NO . HEMATOLOGY/LYMPH: DO YOU TAKE ANY BLOOD THINNERS? (FOR EXAMPLE- COUMADIN, PLAVIX, AGGRENOX, PLATEL, PRADAXA, OR XARELTO) NO . WHEN WAS YOUR LAST DOSE? DATE: TIME: . NEUROLOGY: HAVE YOU FALLEN IN THE PAST 12 MONTHS? NO . ANY NEW EXTREMITY NUMBNESS OR WEAKNESS? NO . CARDIOLOGY: DO YOU HAVE A PACEMAKER OR DEFIBRILLATOR? PT HAS A DORSAL COLUMN STIMULATOR IN PLACE. . RESPIRATORY: HAVE YOU BEEN SICK IN THE PAST WEEK? NO . FEVER NO . FLU LIKE SYMPTOMS? NO . COUGH NO . INTEGUMENTARY: DO YOU HAVE ANY RASHES OR OPEN SORES? NO . ALLERGIC/IMMUNO: ARE YOU ALLERGIC TO IV DYE? NO . ANY NEW ALLERGIES? NO . PSYCHIATRIC: DO YOU HAVE THOUGHTS OF HURTING YOURSELF OR SOMEONE ELSE? NO . ARE YOU ABUSED, NEGLECTED, OR IN AN UNSAFE ENVIRONMENT? NO . ENDOCRINOLOGY: ARE YOU DIABETIC? NO . OTHER: DO YOU NEED ANY PRESCRIPTIONS? NO . IF YES, PLEASE LIST: ____ . ANY NEW PROBLEMS WITH YOUR MEDICATIONS? NO . WHEN DID YOU LAST EAT? ____ . WHEN DID YOU LAST DRINK? ____ . WHAT DID YOU LAST DRINK? ____ . NAME OF PERSON DRIVING YOU HOME? ____ . DO YOU HAVE ANY OTHER QUESTIONS OR CONCERNS AWAITING AUTHORIZATION FOR CT SCAN TO VERIFY LEAD PLACEMENT OF DORSAL COLUMN STIMULATOR FOR BATTERY CHANGE . VITAL SIGNS WT 214.4 LBS, HT 72 IN, BMI 29.07 INDEX, BP 108/56 MM HG, HR 64 /MIN, RR 18 /MIN, TEMP 98.0 F, OXYGEN SAT % 96%, SAFE IN ENV? (Y/N) YES, NA INITIALS SC 09:44, REVIEWED BY: CATHERINE. EXAMINATION GENERAL EXAMINATION: GENERALNO ACUTE DISTRESS, WELL NOURISHED AND HYDRATED. PSYCHAPPROPRIATE MOOD AND AFFECT . LUNGS:CLEAR TO AUSCULTATION BILATERALLY, NO WHEEZES, RHONCHI, RALES. HEART: MURMUR PRESENT,REGULAR RATE AND RHYTHM. ASSESSMENTS LUMBAR POST-LAMINECTOMY SYNDROME - M96.1 (PRIMARY) TREATMENT LUMBAR POST-LAMINECTOMY SYNDROME CLINICAL NOTES: 73 YEAR OLD MALE IN FOR CHRONIC PAIN FOLLOW UP. GIVEN PRESENTING SYMPTOMS AND RESULTS OF PHYSICAL EXAMINATION RECOMMENDED CHECKING ON THE STATUS OF THE CT ORDER PATIENT STATES HE IS STILL AWAITING AUTHORIZATION. PATIENT HAS EXPRESSED UNDERSTANDING OF AND WAS IN AGREEMENT WITH TREATMENT PLAN. GIVEN TIME TO ASK QUESTIONS AND EXPRESS CONCERNS. PROCEDURE CODES FA211 ESTABILISHED PATIENT [facility] CHARGE DISPOSITION & COMMUNICATION FOLLOW UP REASON: PENDING CT RESULTS ELECTRONICALLY SIGNED BY PREETHI IBARRA ON 02/25/2019 AT 09:07 AM EDT DISCLAIMER : THIS IS A VISIT SUMMARY EXTRACTED FROM THE [employer] CHART. IT IS NOT A COPY OF THE [employer] PROGRESS NOTE. FRANCHESKA
== END ==
LOC: M PAIN 09:30
PROVIDERS: ATTEND Family Medicine
DX: M96.1 Postlaminectomy syndrome, not elsewhere classified (principal); I10 Essential (primary) hypertension; Z79.82 Long term (current) use of aspirin; Z79.891 Long term (current) use of opiate analgesic; Z79.899 Other long term (current) drug therapy; Z87.891 Personal history of nicotine dependence

== ENCOUNTER → 2019-08-13 | Outpatient (CLI) | payer MEDICARE ==
[~2019-08-13] MED LIST changes: -ASPI-222 PO; +ASPI-527 PO
--- NOTE | 2019-08-14 11:28 | RADONC ---
RADIATION ONCOLOGY FOLLOWUP NOTE DATE: 08/13/2019 CHART NUMBER: [id number] DIAGNOSIS: Prostate cancer. STAGE: Stage III B, T3b, N0, M0, Shari score 7 (4-3), grade group 3, PSA 4.71. ECOG PERFORMANCE STATUS: 0 FOLLOWUP NOTE: Mr. Live is a very pleasant 74-year-old white male with the diagnosis of a stage III B, T3b, N0, M0 moderate to poorly differentiated Shari score 7 (4-3) adenocarcinoma of the prostate with an initial PSA level of 4.71 who is presenting to us today for routine followup visit 7 months post completion of external beam radiation therapy. The patient presents today reporting that he is doing quite well with no complaints at this time related to his radiation therapy or disease. He has no urinary or bowel difficulties. No bone pain. REVIEW OF SYSTEMS: The patient's review of systems is noncontributory. Denies nausea, vomiting, fevers, chills, night sweats, diplopia, headaches, anxiety or depression, anorexia, weight loss, visual disturbances, chest pain, urinary or bowel difficulties, bone pain, or neurological problems. PHYSICAL EXAMINATION: The patient is a well-developed, well-nourished male in no acute distress. HEENT exam is normocephalic, atraumatic. Extraocular movements are intact. There is no palpable cervical, supraclavicular, infraclavicular, axillary, or inguinal lymphadenopathy present. Lungs are clear to auscultation and percussion. Heart has a regular rate and rhythm. Abdomen is benign with no hepatosplenomegaly, masses, or tenderness. Rectal examination reveals a normal anal sphincter tone. His prostate bed is smooth and no evidence nodularity. Skeletal examination reveals no tenderness to pressure or percussion of the bony skeleton. Extremities reveal no clubbing, cyanosis, or edema. Neurologic exam is grossly intact, as is the remainder of the physical examination. ASSESSMENT: The patient is clinically KATHRYN at this time. He is continuing his close followup and management with his urologist Dr. Raul Murillo MD. In light of this, I am discharging him from my followup at his request except on a p.r.n. basis. cc: MD Ameena Yeh MD Po Lam, MD
== END ==
LOC: M ONCR 13:36
PROVIDERS: ATTEND Radiology Radiation Oncology
DX: C61 Malignant neoplasm of prostate (principal)

== ENCOUNTER → 2020-01-26 | Outpatient (CLI) | payer MEDICARE, OTHER ==
[~2020-01-26] MED LIST changes: +CYCL-707 PO; -CYCL10TA PO; -VITA1TAB23 PO; +VITA250T20 PO
--- NOTE | 2020-01-28 00:05 | ECWPNPC ---
PATIENT NAME: LOUISE PRECIADO : 1945 GENDER: MALE VISIT DATE: 01/26/2020 DISCHARGE DATE: 01/26/20 1243 VISIT LOCKED DATE TIME: PHYSICIAN: ALYSSA HERNDON RESOURCE: ALYSSA HERNDON REASON FOR APPOINTMENT 1. MED MANAGEMENT HISTORY OF PRESENT ILLNESS GENERAL: 74-YEAR-OLD MALE IN FOR CHRONIC PAIN FOLLOW-UP. HE RATES HIS PAIN CURRENTLY AT A 2-3 OUT OF 10. HE FEELS MEDICATIONS ARE HELPFUL AND DENIES MED SIDE EFFECTS AT THIS TIME. HE DOES ADMIT TO OPEN-HEART SURGERY SINCE HIS LAST CLINIC VISIT. -. FALL RISK SCREENING: SCREENING :NO FALLS REPORTED IN THE LAST YEAR PAIN SCREENING: PATIENT HAS A COMPLAINT OF ACUTE OR CHRONIC PAIN :YES LOCATION OF PAIN:MID BACK INTENSITY OF PAIN (SCALE OF 1 TO 10):2 WHAT DOES YOUR PAIN FEEL LIKE:ACHING, CONTINOUS, SORE DURATION:CONTINOUS, CONSTANT, STEADY, ALL DAY, AWAKENS FROM SLEEP PAIN IS INCREASED BY:PROLONGED STANDING LYING DOWN PAIN IS DECREASED BY: SITTING DOWN NURSING NOTE: -. PAIN CENTER INTAKE QUESTIONS: DO YOU HAVE A HISTORY OF MRSA? :NO NOT SURE DO YOU TAKE A BLOOD THINNERS? :NO DO YOU HAVE ANY BLEEDING DISORDERS? :NO ANY NEW NUMBNESS OR WEAKNESS IN YOUR LEGS OR ARMS? :NO ANY PACEMAKER,DEFIBRILLATOR, OR DORSAL COLUMN STIMULATOR? :YES DCS DO YOU HAVE ANY RASHES OR OPEN SORES? :NO ARE YOU ALLERGIC TO IV DYE? :NO ARE YOU DIABETIC? :NO ANY NEW PROBLEMS WITH YOUR MEDICATIONS? :NO HAVE YOU RECEIVED A VACCINE IN THE PAST 30 DAYS? :NO DO YOU PLAN TO RECEIVE A VACCINE IN THE NEXT 21 DAYS? :NO DO YOU NEED ANY PRESCRIPTION? :NO DO YOU TAKE ANY IMMUNOSUPPRESSIVE MEDICATIONS? :NO IS THERE A CHANCE YOU COULD BE ? :NO ARE YOU BREAST FEEDING? :NO CURRENT MEDICATIONS TAKING FISH OIL 1000 MG CAPSULE 1 CAPSULE ORALLY ONCE A DAY TAKING VITAMIN C 100 MG TABLET 2 CAPS ORALLY BID TAKING VITAMIN B-COMPLEX TABLET 1 TAB ORALLY DAILY TAKING CRANBERRY 1000 MG CAPSULE 1 CAP ORALLY DAILY TAKING FLAX SEED OIL 1300 MG CAPSULE 1 CAP ORALLY DAILY TAKING CINNAMON PLUS CHROMIUM 200-1000 MCG-MG CAPSULE 2 CAPS ORALLY BID TAKING VITAMIN D-3 1000 UNIT CAPSULE 1 CAPSULE ORALLY ONCE A DAY TAKING TYLENOL GO TABS EXTRA STRENGTH 500 MG TABLET CHEWABLE 1 TAB(S) ORALLY EVERY 6 HRS NEEDED TAKING ASPIRIN 325 MG TABLET 1 TABLET ORALLY ONCE A DAY TAKING METOPROLOL TARTRATE 25 MG TABLET 1/2 TABLET ORALLY BID TAKING ATORVASTATIN CALCIUM 20 MG TABLET 1 TABLET ORALLY ONCE A DAY TAKING LEVOTHYROXINE SODIUM 50 MCG TABLET 1 TABLET ORALLY ONCE A DAY TAKING MULTIVITAMIN ADULTS - TABLET 1 TAB ORALLY DAILY TAKING COENZYME Q-10 200 MG CAPSULE 1 CAPSULE WITH A MEAL ORALLY ONCE A DAY TAKING RANEXA 500 MG TABLET EXTENDED RELEASE 12 HOUR 1 TABLET ORALLY TWICE A DAY TAKING OSTEO BI-FLEX ADV TRIPLE ST - TABLET DIRECTED ORALLY ONCE DAILY TAKING BACLOFEN 10 MG TABLET 1/2 TABLET WITH FOOD OR MILK ORALLY THREE TIMES DAILY NEEDED TAKING HYDROCODONE-ACETAMINOPHEN 5-325 MG TABLET 1 TABLET NEEDED ORALLY Q8H PRN PAIN MDD3 TAKING AMIODARONE HCL 200 MG TABLET 1 TABLET ORALLY ONCE A DAY TAKING DOCUSATE SODIUM 100 MG CAPSULE 1 CAPSULE NEEDED ORALLY TWICE DAILY NEEDED TAKING FERROUS GLUCONATE 324 (38 FE) MG TABLET 1 TAB ORALLY TWICE DAILY TAKING BENZONATATE 200 MG CAPSULE 1 CAPSULE ORALLY THREE TIMES A DAY TAKING VITAMIN E 400 UNIT CAPSULE 1 CAPSULE ORALLY ONCE A DAY TAKING KLOR-CON 10 10 MEQ TABLET EXTENDED RELEASE 1 TABLET WITH FOOD ORALLY TWICE A DAY NOT-TAKING BACLOFEN 20 MG TABLET 1/2 TABLET WITH FOOD OR MILK ORALLY BEFORE BEDTIME NEEDED NOT-TAKING TAMSULOSIN HCL 0.4 MG CAPSULE EXTENDED RELEASE 24 HOUR 1 CAPSULE 30 MINUTES AFTER THE SAME MEAL EACH DAY ORALLY ONCE A DAY NOT-TAKING FINASTERIDE 5 MG TABLET 1 TABLET ORALLY ONCE A DAY MEDICATION LIST REVIEWED AND RECONCILED WITH THE PATIENT PAST MEDICAL HISTORY MSSA SEPSIS DDD MULTIPLE BACK SURGERIES WITH DORSAL COLUMN STIMULATOR HTN BPH PROSTATITIS CAD S/P STENTS AND 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 SURGICAL HISTORY BACK SURGERY 1971 LEFT EYE SURGERY 1980 DETACHED RETINA L EYE 1982 BILATERAL CARPAL TUNNEL 1992 AND 1993 APPENDIX 2001 BACK STIMULATOR 2008 HEART STENTS 2012 RIGHT ROTATOR CUFF REPAIR 2014 BILATERAL CATAARACTS 2014 PROSTATECTOMY 09/2018 OPEN HEART TO REPLACE AORTIC VALVE AND PART OF [place] 12/05/2019 FAMILY HISTORY FATHER: , DIAGNOSED WITH OTHER SPECIFIED CONDITIONS INFLUENCING HEALTH STATUS, OTHER MALIGNANT NEOPLASM OF UNSPECIFIED SITE MOTHER: , UNSPECIFIED HEART DISEASE 4 BROTHER(S) , 1 SISTER(S) . 2 SON(S) , 3 DAUGHTER(S) - HEALTHY. 2 BROTHERS - 1 W\/ CANCER. SOCIAL HISTORY GENERAL: TOBACCO USE ARE YOU A:FORMER SMOKER HOW LONG HAS IT BEEN SINCE YOU LAST SMOKED?> 10 YEARS LATEX QUESTIONNAIRE LATEX ALLERGY : HAVE YOU EVER DEVELOPED ANY TYPE OF REACTION AFTER HANDLING LATEX PRODUCTS SUCH RUBBER GLOVES, CONDOMS, DIAPHRAGMS, BALLOONS, SOCKS, OR UNDERWEAR?NO LATEX ALLERGY : HAVE YOU EVER DEVELOPED ANY TYPE OF REACTION DURING OR AFTER DENTAL APPOINTMENT, VAGINAL/RECTAL EXAMINATION, SURGICAL PROCEDURE, OR ANY OTHER EXPOSURE?NO LATEX RISK : HAVE YOU EVER HAD ANY DIFFICULTY BREATHING OR HIVES AFTER EATING OR HANDLING ANY FRUITS, OR VEGETABLES; SUCH KIWI, BANANAS, STONE FRUITS, OR CHESTNUTSNO LATEX RISK : DO YOU HAVE A PREVIOUS PERSONAL HISTORY OF MORE THAN NINE SURGERIES, SPINA BIFIDA, OR REPEATED CATHERIZATIONS? YES - PLEASE INDICATE : > 9 SURGERIES LATEX RISK : ARE YOU FREQUENTLY EXPOSED TO LATEX PRODUCTS IN YOUR OCCUPATION?NO DATE ASKED : 01/26/2020 ALCOHOL SCREENING DID YOU HAVE A DRINK CONTAINING ALCOHOL IN THE PAST YEAR?NO POINTS0 INTERPRETATIONNEGATIVE RECREATIONAL DRUG USE DRUG USE?NO CAFFEINE CAFFEINE USE?YES HOW OFTEN AND HOW MUCH? 2 CUPS COFFEE/DAY AMISH [id number] EPISCOPAL LANGUAGE LANGUAGES SPOKEN:NEPALESE EDUCATION LEVEL OF EDUCATION:HIGH SCHOOL GRADUATE LEARNING BARRIERS / SPECIAL NEEDS BARRIERS TO LEARNING?NO HEARING IMPAIRED?YES :HEARING AIDES DECREASED HEARING VISION IMPAIRED?YES :CORRECTIVE LENSES READING COGNITIVELY IMPAIRED?NO READINESS TO LEARN?YES LEARNING PREFERENCES?YES :TAPES/VIDEOS, DEMONSTRATION/VERBAL INSTRUCTION LEARNING CAPABILITIES PRESENT?YES EMOTIONAL BARRIERS?NO SPECIAL DEVICES?YES : OCC. WALKING STICK IF WALKING LONG DISTANCES DIRECTOR DRUG SAFETY NEEDED?NO DOMESTIC VIOLENCE DO YOU FEEL SAFE IN YOUR ENVIRONMENT?YES OCCUPATION: RETIRED. DIET: REGULAR. EXERCISE: WALKS, DAILY. MARITAL STATUS: . OTHERS AT HOME: SPOUSE. PAIN CLINIC PFS, CLERGY, PUBLIC HEALTH REFERRALS PFS REFERRAL NEEDED?NO CLERGY REFERRAL NEEDED?NO PUBLIC HEALTH REFERRAL NEEDED?NO HAS THE PATIENT BEEN EDUCATED REGARDING HIS/HER PLAN OF CARE?YES HAS THE PATIENT BEEN EDUCATED REGARDING PAIN, THE RISK FOR PAIN, THE IMPORTANCE OF EFFECTIVE PAIN MANAGEMENT, AND THE PAIN ASSESSMENT PROCESS?YES ADVANCE DIRECTIVE ADVANCE DIRECTIVE DISCUSSED WITH PATIENT:YES 01/26/2020 PT STATES HE DOES NOT HAVE ANY ADVANCED DIRECTIVES AND HE DECLINES INFORMATION OR ASSISTANCE IN FILLING OUT HCP AT THIS TIME HOSPITALIZATION/MAJOR DIAGNOSTIC PROCEDURE RELATED TO SURGERIES REVIEW OF SYSTEMS CONSTITUTIONAL: ANY RECENT FEVER NO . CHILLS NO . WEIGHT CHANGE OF UNKNOWN REASONS NO . GASTROENTEROLOGY: NEW UNEXPLAINABLE CHANGES IN BOWEL CONTROL NO . CONSTIPATION NO . GENITOURINARY: ANY NEW CHANGE IN BLADDER CONTROL? NO . NEUROLOGY: NEW ONSET DIZZINESS OR NEUROLOGICAL CHANGES NOT MENTIONED NO . NEW NUMBNESS OR PAIN PATTERNS NOT MENTIONED AND PERTINENT TO TODAY'S VISIT NO . CARDIOLOGY: NEW CHEST PRESSURE NO . NEW CHEST PAIN NO . RESPIRATORY: UNEXPLAINABLE COUGH NO . NEW SHORTNESS OF BREATH NO . VITAL SIGNS WT 218.8 LBS, HT 72 IN, BMI 29.67 INDEX, BP 120/64 MM HG, HR 65 /MIN, RR 18 /MIN, TEMP 97.6 F, OXYGEN SAT % 97%, SAFE IN ENV? (Y/N) Y, NA INITIALS AW 1136, REVIEWED BY: YVETTE. EXAMINATION GENERAL EXAMINATION: GENERALNO ACUTE DISTRESS, WELL NOURISHED AND HYDRATED. PSYCHAPPROPRIATE MOOD AND AFFECT . LUNGS:CLEAR TO AUSCULTATION BILATERALLY, NO WHEEZES, RHONCHI, RALES. HEART:NO MURMURS, REGULAR RATE AND RHYTHM. 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 GIVEN PRESENTING SYMPTOMS RECOMMENDED CONTINUATION OF CURRENT MEDICATION REGIMEN WITH FOLLOW-UP IN 3 MONTHS. PATIENT HAS EXPRESSED UNDERSTANDING OF AND WAS IN AGREEMENT WITH TREATMENT PLAN. GIVEN TIME TO ASK QUESTIONS AND EXPRESS CONCERNS. , ISTOP REGISTRY REVIEWED AND DEMONSTRATES COMPLLIANCE. (REF # ) BRINGS IN MEDICATIONS WHICH IS APPROPRIATE FOR WHAT WAS DISPENSED. RECENT URINE TOXICOLOGY REVIEWED. NO UNAUTHORIZED MEDICATIONS. NO ILLICIT SUBSTANCES AND PRESCRIBED MEDICATIONS WERE PRESENT. PROCEDURE CODES FA211 ESTABILISHED PATIENT [facility] CHARGE DISPOSITION & COMMUNICATION FOLLOW UP 3 MONTHS (REASON: BACK PAIN) ELECTRONICALLY SIGNED BY PREETHI IBARRA ON 01/27/2020 AT 03:24 PM EDT DISCLAIMER : THIS IS A VISIT SUMMARY EXTRACTED FROM THE [employer] CHART. IT IS NOT A COPY OF THE [employer] PROGRESS NOTE. FRANCHESKA
== END ==
LOC: M PAIN 11:15
PROVIDERS: ATTEND Family Medicine
DX: M96.1 Postlaminectomy syndrome, not elsewhere classified (principal); Z79.891 Long term (current) use of opiate analgesic

== ENCOUNTER → 2020-04-27 | Outpatient (CLI) | payer MEDICARE, OTHER ==
--- NOTE | 2020-04-28 11:07 | ECWPNPC ---
PATIENT NAME: LOUISE PRECIADO : 1945 GENDER: MALE VISIT DATE: 04/27/2020 DISCHARGE DATE: 04/27/20 1222 VISIT LOCKED DATE TIME: PHYSICIAN: ALYSSA HERNDON RESOURCE: ALYSSA HERNDON REASON FOR APPOINTMENT 1. BACK PAIN HISTORY OF PRESENT ILLNESS GENERAL: - 75-YEAR-OLD MALE IN FOR CHRONIC PAIN FOLLOW-UP. HE RATES HIS PAIN CURRENTLY AT A 3 OUT OF 10 AND DESCRIBES IT ACHING. HE FEELS MEDICATIONS ARE HELPFUL AND DENIES MED SIDE EFFECTS AT THIS TIME. FALL RISK SCREENING: SCREENING :NO FALLS REPORTED IN THE LAST YEAR PAIN SCREENING: PATIENT HAS A COMPLAINT OF ACUTE OR CHRONIC PAIN :YES LOCATION OF PAIN:LOW BACK, LEG(S) PATIENT HAS PAIN IN THE LOWER BACK THAT RADIATES DOWN BOTH LEGS. INTENSITY OF PAIN (SCALE OF 1 TO 10):3 WHAT DOES YOUR PAIN FEEL LIKE:ACHING DURATION:CONTINOUS, AWAKENS FROM SLEEP PAIN IS INCREASED BY:ACTIVITIES, OTHERS LAYING IN ONE POSITION FOR TOO LONG INCREASES PAIN. PAIN IS DECREASED BY:USE OF PAIN MEDICATIONS, OTHERS DORSAL COLUMN STIMULATOR, AND PAIN MEDS HELP TO REDUCE PAIN. NURSING NOTE: -. PAIN CENTER INTAKE QUESTIONS: DO YOU HAVE A HISTORY OF MRSA? :NO DO YOU TAKE A BLOOD THINNERS? :NO DO YOU HAVE ANY BLEEDING DISORDERS? :NO ANY NEW NUMBNESS OR WEAKNESS IN YOUR LEGS OR ARMS? :NO ANY PACEMAKER,DEFIBRILLATOR, OR DORSAL COLUMN STIMULATOR? :NO DO YOU HAVE ANY RASHES OR OPEN SORES? :NO ARE YOU ALLERGIC TO IV DYE? :NO ARE YOU DIABETIC? :NO ANY NEW PROBLEMS WITH YOUR MEDICATIONS? :NO HAVE YOU RECEIVED A VACCINE IN THE PAST 30 DAYS? :NO DO YOU PLAN TO RECEIVE A VACCINE IN THE NEXT 21 DAYS? :NO DO YOU NEED ANY PRESCRIPTION? :NO DO YOU TAKE ANY IMMUNOSUPPRESSIVE MEDICATIONS? :NO IS THERE A CHANCE YOU COULD BE ? :NO ARE YOU BREAST FEEDING? :NO CURRENT MEDICATIONS TAKING FISH OIL 1000 MG CAPSULE 1 CAPSULE ORALLY ONCE A DAY TAKING VITAMIN C 100 MG TABLET 2 CAPS ORALLY BID TAKING VITAMIN B-COMPLEX TABLET 1 TAB ORALLY DAILY TAKING CRANBERRY 1000 MG CAPSULE 1 CAP ORALLY DAILY TAKING FLAX SEED OIL 1300 MG CAPSULE 1 CAP ORALLY DAILY TAKING CINNAMON PLUS CHROMIUM 200-1000 MCG-MG CAPSULE 2 CAPS ORALLY BID TAKING VITAMIN D-3 1000 UNIT CAPSULE 1 CAPSULE ORALLY ONCE A DAY TAKING TYLENOL GO TABS EXTRA STRENGTH 500 MG TABLET CHEWABLE 1 TAB(S) ORALLY EVERY 6 HRS NEEDED TAKING ASPIRIN 325 MG TABLET 1 TABLET ORALLY ONCE A DAY TAKING METOPROLOL TARTRATE 25 MG TABLET 1/2 TABLET ORALLY BID TAKING ATORVASTATIN CALCIUM 20 MG TABLET 1 TABLET ORALLY ONCE A DAY TAKING LEVOTHYROXINE SODIUM 50 MCG TABLET 1 TABLET ORALLY ONCE A DAY TAKING MULTIVITAMIN ADULTS - TABLET 1 TAB ORALLY DAILY TAKING COENZYME Q-10 200 MG CAPSULE 1 CAPSULE WITH A MEAL ORALLY ONCE A DAY TAKING RANEXA 500 MG TABLET EXTENDED RELEASE 12 HOUR 1 TABLET ORALLY TWICE A DAY TAKING OSTEO BI-FLEX ADV TRIPLE ST - TABLET DIRECTED ORALLY ONCE DAILY TAKING BACLOFEN 10 MG TABLET 1/2 TABLET WITH FOOD OR MILK ORALLY THREE TIMES DAILY NEEDED TAKING HYDROCODONE-ACETAMINOPHEN 5-325 MG TABLET 1 TABLET NEEDED ORALLY Q8H PRN PAIN MDD3 TAKING AMIODARONE HCL 200 MG TABLET 1 TABLET ORALLY ONCE A DAY TAKING DOCUSATE SODIUM 100 MG CAPSULE 1 CAPSULE NEEDED ORALLY TWICE DAILY NEEDED TAKING FERROUS GLUCONATE 324 (38 FE) MG TABLET 1 TAB ORALLY TWICE DAILY TAKING BENZONATATE 200 MG CAPSULE 1 CAPSULE ORALLY THREE TIMES A DAY TAKING VITAMIN E 400 UNIT CAPSULE 1 CAPSULE ORALLY ONCE A DAY TAKING KLOR-CON 10 10 MEQ TABLET EXTENDED RELEASE 1 TABLET WITH FOOD ORALLY TWICE A DAY TAKING MENS ONE DAILY NOT-TAKING BACLOFEN 20 MG TABLET 1/2 TABLET WITH FOOD OR MILK ORALLY BEFORE BEDTIME NEEDED NOT-TAKING TAMSULOSIN HCL 0.4 MG CAPSULE EXTENDED RELEASE 24 HOUR 1 CAPSULE 30 MINUTES AFTER THE SAME MEAL EACH DAY ORALLY ONCE A DAY NOT-TAKING FINASTERIDE 5 MG TABLET 1 TABLET ORALLY ONCE A DAY MEDICATION LIST REVIEWED AND RECONCILED WITH THE PATIENT PAST MEDICAL HISTORY MSSA SEPSIS DDD MULTIPLE BACK SURGERIES WITH DORSAL COLUMN STIMULATOR HTN BPH PROSTATITIS CAD S/P STENTS AND DE PROSTATE CANCER - NOW CANCER FREE PER PT 02/2019 HEART MURMUR/ ENLARGED HEART AORTIC VALVE DIDN'T CLOSE ALLERGIES N.K.D.A. SURGICAL HISTORY BACK SURGERY 1971 LEFT EYE SURGERY 1980 DETACHED RETINA L EYE 1982 BILATERAL CARPAL TUNNEL 1992 AND 1992 APPENDIX 2001 BACK STIMULATOR 2008 HEART STENTS 2012 RIGHT ROTATOR CUFF REPAIR 2014 BILATERAL CATAARACTS 2014 PROSTATECTOMY 09/2018 OPEN HEART TO REPLACE AORTIC VALVE AND PART OF [place] 12/05/2019 FAMILY HISTORY FATHER: , DIAGNOSED WITH OTHER MALIGNANT NEOPLASM OF UNSPECIFIED SITE, OTHER SPECIFIED CONDITIONS INFLUENCING HEALTH STATUS MOTHER: , UNSPECIFIED HEART DISEASE 4 BROTHER(S) , 1 SISTER(S) . 2 SON(S) , 3 DAUGHTER(S) - HEALTHY. 2 BROTHERS - 1 W\/ CANCER. SOCIAL HISTORY GENERAL: TOBACCO USE ARE YOU A:FORMER SMOKER HOW LONG HAS IT BEEN SINCE YOU LAST SMOKED?> 10 YEARS LATEX QUESTIONNAIRE LATEX ALLERGY : HAVE YOU EVER DEVELOPED ANY TYPE OF REACTION AFTER HANDLING LATEX PRODUCTS SUCH RUBBER GLOVES, CONDOMS, DIAPHRAGMS, BALLOONS, SOCKS, OR UNDERWEAR?NO LATEX ALLERGY : HAVE YOU EVER DEVELOPED ANY TYPE OF REACTION DURING OR AFTER DENTAL APPOINTMENT, VAGINAL/RECTAL EXAMINATION, SURGICAL PROCEDURE, OR ANY OTHER EXPOSURE?NO LATEX RISK : HAVE YOU EVER HAD ANY DIFFICULTY BREATHING OR HIVES AFTER EATING OR HANDLING ANY FRUITS, OR VEGETABLES; SUCH KIWI, BANANAS, STONE FRUITS, OR CHESTNUTSNO LATEX RISK : DO YOU HAVE A PREVIOUS PERSONAL HISTORY OF MORE THAN NINE SURGERIES, SPINA BIFIDA, OR REPEATED CATHERIZATIONS? YES - PLEASE INDICATE : > 9 SURGERIES LATEX RISK : ARE YOU FREQUENTLY EXPOSED TO LATEX PRODUCTS IN YOUR OCCUPATION?NO DATE ASKED : 04/27/2020 ALCOHOL SCREENING DID YOU HAVE A DRINK CONTAINING ALCOHOL IN THE PAST YEAR?NO POINTS0 INTERPRETATIONNEGATIVE RECREATIONAL DRUG USE DRUG USE?NO CAFFEINE CAFFEINE USE?YES HOW OFTEN AND HOW MUCH? 2 CUPS COFFEE/DAY LATTER DAY [id number] [employer] LANGUAGE LANGUAGES SPOKEN:UZBEK EDUCATION LEVEL OF EDUCATION:HIGH SCHOOL GRADUATE LEARNING BARRIERS / SPECIAL NEEDS BARRIERS TO LEARNING?NO HEARING IMPAIRED?YES VISION IMPAIRED?YES COGNITIVELY IMPAIRED?NO :HEARING AIDES DECREASED HEARING :CORRECTIVE LENSES READING READINESS TO LEARN?YES LEARNING PREFERENCES?YES :TAPES/VIDEOS, DEMONSTRATION/VERBAL INSTRUCTION LEARNING CAPABILITIES PRESENT?YES EMOTIONAL BARRIERS?NO SPECIAL DEVICES?YES : OCC. WALKING STICK IF WALKING LONG DISTANCES VENDING MACHINE OPERATOR NEEDED?NO DOMESTIC VIOLENCE DO YOU FEEL SAFE IN YOUR ENVIRONMENT?YES OCCUPATION: RETIRED. DIET: REGULAR. EXERCISE: WALKS, DAILY. MARITAL STATUS: . OTHERS AT HOME: SPOUSE. PAIN CLINIC PFS, CLERGY, PUBLIC HEALTH REFERRALS PFS REFERRAL NEEDED?NO CLERGY REFERRAL NEEDED?NO PUBLIC HEALTH REFERRAL NEEDED?NO HAS THE PATIENT BEEN EDUCATED REGARDING HIS/HER PLAN OF CARE?YES HAS THE PATIENT BEEN EDUCATED REGARDING PAIN, THE RISK FOR PAIN, THE IMPORTANCE OF EFFECTIVE PAIN MANAGEMENT, AND THE PAIN ASSESSMENT PROCESS?YES ADVANCE DIRECTIVE ADVANCE DIRECTIVE DISCUSSED WITH PATIENT:YES 01/26/2020 PT STATES HE DOES NOT HAVE ANY ADVANCED DIRECTIVES AND HE DECLINES INFORMATION OR ASSISTANCE IN FILLING OUT HCP AT THIS TIME HOSPITALIZATION/MAJOR DIAGNOSTIC PROCEDURE RELATED TO SURGERIES REVIEW OF SYSTEMS CONSTITUTIONAL: ANY RECENT FEVER NO . CHILLS NO . WEIGHT CHANGE OF UNKNOWN REASONS NO . GASTROENTEROLOGY: NEW UNEXPLAINABLE CHANGES IN BOWEL CONTROL NO . CONSTIPATION NO . GENITOURINARY: ANY NEW CHANGE IN BLADDER CONTROL? NO . NEUROLOGY: NEW ONSET DIZZINESS OR NEUROLOGICAL CHANGES NOT MENTIONED NO . NEW NUMBNESS OR PAIN PATTERNS NOT MENTIONED AND PERTINENT TO TODAY'S VISIT NO . CARDIOLOGY: NEW CHEST PRESSURE NO . NEW CHEST PAIN NO . RESPIRATORY: UNEXPLAINABLE COUGH NO . NEW SHORTNESS OF BREATH NO . VITAL SIGNS WT 225.0 LBS, HT 72 IN, BMI 30.51 INDEX, BP 108/65 MM HG, HR 67 /MIN, RR 18 /MIN, TEMP 97.5 F, OXYGEN SAT % 96%, NA INITIALS [id number], REVIEWED BY: DM. EXAMINATION GENERAL EXAMINATION: GENERALNO ACUTE DISTRESS, WELL NOURISHED AND HYDRATED. PSYCHAPPROPRIATE MOOD AND AFFECT . LUNGS:CLEAR TO AUSCULTATION BILATERALLY, NO WHEEZES, RHONCHI, RALES. HEART:NO MURMURS, REGULAR RATE AND RHYTHM. ASSESSMENTS POST LAMINECTOMY SYNDROME - M96.1 (PRIMARY) TREATMENT POST LAMINECTOMY SYNDROME CLINICAL NOTES: 75-YEAR-OLD MALE IN FOR CHRONIC PAIN FOLLOW-UP. GIVEN PRESENTING SYMPTOMS RECOMMENDED CONTINUATION OF CURRENT MEDICATION REGIMEN WITH FOLLOW-UP IN 3 MONTHS. PATIENT IS EXPRESSED UNDERSTANDING OF AND WAS IN AGREEMENT WITH TREATMENT PLAN. GIVEN TIME TO ASK QUESTIONS AND EXPRESS CONCERNS. , ISTOP REGISTRY REVIEWED AND DEMONSTRATES COMPLLIANCE. (REF # [id number] ) BRINGS IN MEDICATIONS WHICH IS APPROPRIATE FOR WHAT WAS DISPENSED. RECENT URINE TOXICOLOGY REVIEWED. NO UNAUTHORIZED MEDICATIONS. NO ILLICIT SUBSTANCES AND PRESCRIBED MEDICATIONS WERE PRESENT. PREVENTIVE MEDICINE PAIN CLINIC TEACHING: THE PATIENT HAS BEEN EDUCATED REGARDING PAIN, THE RISK FOR PAIN, THE IMPORTANCE OF EFFECTIVE PAIN MANAGEMENT, AND THE PAIN ASSESSMENT PROCESS. : DISCUSSED CARE PLAN WITH PATIENT, PATIENT VERBALIZES UNDERSTANDING. PROCEDURE CODES FA211 ESTABILISHED PATIENT [facility] CHARGE DISPOSITION & COMMUNICATION FOLLOW UP 3 MONTHS (REASON: BACK PAIN) ELECTRONICALLY SIGNED BY PREETHI IBARRA ON 04/28/2020 AT 09:18 AM EDT DISCLAIMER : THIS IS A VISIT SUMMARY EXTRACTED FROM THE [employer] CHART. IT IS NOT A COPY OF THE [employer] PROGRESS NOTE. MTDD
== END ==
LOC: M PAIN 11:30
PROVIDERS: ATTEND Family Medicine
DX: M96.1 Postlaminectomy syndrome, not elsewhere classified (principal); Z85.46 Personal history of malignant neoplasm of prostate; Z95.5 Presence of coronary angioplasty implant and graft; Z87.891 Personal history of nicotine dependence; Z79.82 Long term (current) use of aspirin; Z79.899 Other long term (current) drug therapy

== ENCOUNTER → 2020-08-11 | Outpatient (CLI) | payer MEDICARE, OTHER ==
--- NOTE | 2020-08-13 07:50 | ECWPNPC ---
PATIENT NAME: LOUISE PRECIADO : 1945 GENDER: MALE VISIT DATE: 08/11/2020 DISCHARGE DATE: 08/11/20 1113 VISIT LOCKED DATE TIME: PHYSICIAN: ALYSSA HERNDON RESOURCE: ALYSSA HERNDON REASON FOR APPOINTMENT 1. BACK PAIN HISTORY OF PRESENT ILLNESS DEPRESSION SCREENIN-YEAR-OLD MALE IN FOR CHRONIC PAIN FOLLOW-UP. HE RATES PAIN CURRENTLY AT A 4 OUT OF 10 AND DESCRIBES IT ACHING AND CONTINUOUS. HE FEELS MEDICATIONS ARE HELPFUL AND DENIES MED SIDE EFFECTS AT THIS TIME. PHQ-2 (2015 EDITION) LITTLE INTEREST OR PLEASURE IN DOING THINGS?NOT AT ALL FEELING DOWN, DEPRESSED, OR HOPELESS?NOT AT ALL TOTAL SCORE0 GENERAL: -. FALL RISK SCREENING: SCREENING :NO FALLS REPORTED IN THE LAST YEAR PAIN SCREENING: PATIENT HAS A COMPLAINT OF ACUTE OR CHRONIC PAIN :YES LOCATION OF PAIN:LOW BACK INTENSITY OF PAIN (SCALE OF 1 TO 10):4 WHAT DOES YOUR PAIN FEEL LIKE:ACHING, CONTINOUS DURATION:CONSTANT, ALL DAY, AWAKENS FROM SLEEP PAIN IS INCREASED BY:PROLONGED STANDING, OTHERS CANNOT LIE DOWN PAIN IS DECREASED BY:USE OF PAIN MEDICATIONS, SITTING WHEN STIMULATOR ON, PAIN IS A 1 OR 2 NURSING NOTE: -. PAIN CENTER INTAKE QUESTIONS: DO YOU HAVE A HISTORY OF MRSA? :NO DO YOU TAKE A BLOOD THINNERS? :NO DO YOU HAVE ANY BLEEDING DISORDERS? :NO ANY NEW NUMBNESS OR WEAKNESS IN YOUR LEGS OR ARMS? :YES WEAKNESS AND NUMBNESS IN LEFT ARM & HAND ANY PACEMAKER,DEFIBRILLATOR, OR DORSAL COLUMN STIMULATOR? :YES HAS DORSAL COLUMN STIMULATOR DO YOU HAVE ANY RASHES OR OPEN SORES? :NO ARE YOU ALLERGIC TO IV DYE? :NO ARE YOU DIABETIC? :NO ANY NEW PROBLEMS WITH YOUR MEDICATIONS? :NO HAVE YOU RECEIVED A VACCINE IN THE PAST 30 DAYS? :NO DO YOU PLAN TO RECEIVE A VACCINE IN THE NEXT 21 DAYS? :NO DO YOU NEED ANY PRESCRIPTION? :NO DO YOU TAKE ANY IMMUNOSUPPRESSIVE MEDICATIONS? :NO IS THERE A CHANCE YOU COULD BE ? :NO ARE YOU BREAST FEEDING? :NO CURRENT MEDICATIONS TAKING FISH OIL 1000 MG CAPSULE 1 CAPSULE ORALLY ONCE A DAY TAKING VITAMIN C 100 MG TABLET 2 CAPS ORALLY BID TAKING VITAMIN B-COMPLEX TABLET 1.2 ORALLY DAILY TAKING FLAX SEED OIL 1300 MG CAPSULE 1 CAP ORALLY DAILY TAKING CINNAMON PLUS CHROMIUM 200-1000 MCG-MG CAPSULE 2 CAPS ORALLY BID TAKING VITAMIN D-3 1000 UNIT CAPSULE 1 CAPSULE ORALLY ONCE A DAY TAKING TYLENOL GO TABS EXTRA STRENGTH 500 MG TABLET CHEWABLE 1 TAB(S) ORALLY EVERY 6 HRS NEEDED TAKING ASPIRIN 325 MG TABLET 1 TABLET ORALLY ONCE A DAY TAKING ATORVASTATIN CALCIUM 20 MG TABLET 1 TABLET ORALLY ONCE A DAY TAKING LEVOTHYROXINE SODIUM 50 MCG TABLET 1 TABLET ORALLY ONCE A DAY TAKING MULTIVITAMIN ADULTS - TABLET 1 TAB ORALLY DAILY TAKING COENZYME Q-10 200 MG CAPSULE 1 CAPSULE WITH A MEAL ORALLY ONCE A DAY TAKING RANEXA 500 MG TABLET EXTENDED RELEASE 12 HOUR 1 TABLET ORALLY TWICE A DAY TAKING OSTEO BI-FLEX ADV TRIPLE ST - TABLET DIRECTED ORALLY ONCE DAILY TAKING BACLOFEN 10 MG TABLET 1/2 TABLET WITH FOOD OR MILK ORALLY THREE TIMES DAILY NEEDED TAKING DOCUSATE SODIUM 100 MG CAPSULE 1 CAPSULE NEEDED ORALLY TWICE DAILY NEEDED TAKING VITAMIN E 400 UNIT CAPSULE 1 CAPSULE ORALLY ONCE A DAY TAKING KLOR-CON 10 10 MEQ TABLET EXTENDED RELEASE 1 TABLET WITH FOOD ORALLY TWICE A DAY TAKING MENS ONE DAILY TAKING HYDROCODONE-ACETAMINOPHEN 5-325 MG TABLET 1 TABLET NEEDED ORALLY Q8H PRN PAIN MDD3 TAKING ACETAMINOPHEN 500 MG CAPSULE 1 CAPSULE NEEDED ORALLY EVERY 6 HRS TAKING CRANBERRY PLUS VITAMIN C 4200-20-3 MG-MG-UNIT CAPSULE DIRECTED ORALLY TAKING FUROSEMIDE 20 MG TABLET 1 TABLET ORALLY ONCE A DAY NOT-TAKING CRANBERRY 1000 MG CAPSULE 1 CAP ORALLY DAILY NOT-TAKING METOPROLOL TARTRATE 25 MG TABLET 1/2 TABLET ORALLY BID NOT-TAKING AMIODARONE HCL 200 MG TABLET 1 TABLET ORALLY ONCE A DAY NOT-TAKING FERROUS GLUCONATE 324 (38 FE) MG TABLET 1 TAB ORALLY TWICE DAILY NOT-TAKING BENZONATATE 200 MG CAPSULE 1 CAPSULE ORALLY THREE TIMES A DAY NOT-TAKING BACLOFEN 20 MG TABLET 1/2 TABLET WITH FOOD OR MILK ORALLY BEFORE BEDTIME NEEDED NOT-TAKING TAMSULOSIN HCL 0.4 MG CAPSULE EXTENDED RELEASE 24 HOUR 1 CAPSULE 30 MINUTES AFTER THE SAME MEAL EACH DAY ORALLY ONCE A DAY NOT-TAKING FINASTERIDE 5 MG TABLET 1 TABLET ORALLY ONCE A DAY MEDICATION LIST REVIEWED AND RECONCILED WITH THE PATIENT PAST MEDICAL HISTORY MSSA SEPSIS DDD MULTIPLE BACK SURGERIES WITH DORSAL COLUMN STIMULATOR HTN BPH PROSTATITIS CAD S/P STENTS AND CA PROSTATE CANCER - NOW CANCER FREE PER PT 02/2019 HEART MURMUR/ ENLARGED HEART AORTIC VALVE DIDN'T CLOSE ALLERGIES N.K.D.A. SOCIAL HISTORY GENERAL: TOBACCO USE ARE YOU A:FORMER SMOKER HOW LONG HAS IT BEEN SINCE YOU LAST SMOKED?> 10 YEARS LATEX QUESTIONNAIRE LATEX ALLERGY : HAVE YOU EVER DEVELOPED ANY TYPE OF REACTION AFTER HANDLING LATEX PRODUCTS SUCH RUBBER GLOVES, CONDOMS, DIAPHRAGMS, BALLOONS, SOCKS, OR UNDERWEAR?YES BANDAGE WITH LATEX ON IT CAUSES SLIGHT SKIN IRRITATION - PLEASE INDICATE :OTHER (DOCUMENT IN NOTES) LATEX ALLERGY : HAVE YOU EVER DEVELOPED ANY TYPE OF REACTION DURING OR AFTER DENTAL APPOINTMENT, VAGINAL/RECTAL EXAMINATION, SURGICAL PROCEDURE, OR ANY OTHER EXPOSURE?NO LATEX RISK : HAVE YOU EVER HAD ANY DIFFICULTY BREATHING OR HIVES AFTER EATING OR HANDLING ANY FRUITS, OR VEGETABLES; SUCH KIWI, BANANAS, STONE FRUITS, OR CHESTNUTSNO LATEX RISK : DO YOU HAVE A PREVIOUS PERSONAL HISTORY OF MORE THAN NINE SURGERIES, SPINA BIFIDA, OR REPEATED CATHERIZATIONS? NO LATEX RISK : ARE YOU FREQUENTLY EXPOSED TO LATEX PRODUCTS IN YOUR OCCUPATION?NO DATE ASKED : 08/11/2020 ALCOHOL USE: NO. ALCOHOL SCREENING DID YOU HAVE A DRINK CONTAINING ALCOHOL IN THE PAST YEAR?NO POINTS0 INTERPRETATIONNEGATIVE RECREATIONAL DRUG USE DRUG USE?NO CAFFEINE CAFFEINE USE?YES HOW OFTEN AND HOW MUCH? 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 DIET: REGULAR. EXERCISE: WALKS, DAILY. MARITAL STATUS: . OTHERS AT HOME: SPOUSE. REVIEW OF SYSTEMS CONSTITUTIONAL: ANY RECENT FEVER NO . CHILLS NO . WEIGHT CHANGE OF UNKNOWN REASONS NO . GASTROENTEROLOGY: NEW UNEXPLAINABLE CHANGES IN BOWEL CONTROL NO . CONSTIPATION NO . GENITOURINARY: ANY NEW CHANGE IN BLADDER CONTROL? NO . NEUROLOGY: NEW ONSET DIZZINESS OR NEUROLOGICAL CHANGES NOT MENTIONED NO . NEW NUMBNESS OR PAIN PATTERNS NOT MENTIONED AND PERTINENT TO TODAY'S VISIT NO . CARDIOLOGY: NEW CHEST PRESSURE NO . NEW CHEST PAIN NO . RESPIRATORY: UNEXPLAINABLE COUGH NO . NEW SHORTNESS OF BREATH NO . VITAL SIGNS WT 229.2 LBS, HT 72 IN, BMI 31.08 INDEX, BP 136/78 MM HG, HR 78 /MIN, RR 18 /MIN, TEMP 96.5 F, OXYGEN SAT % 98, SAFE IN ENV? (Y/N) YES, REVIEWED BY: [facility]. PEGGY RN. EXAMINATION GENERAL EXAMINATION: GENERALNO ACUTE DISTRESS, WELL NOURISHED AND HYDRATED. PSYCHAPPROPRIATE MOOD AND AFFECT . LUNGS:CLEAR TO AUSCULTATION BILATERALLY, NO WHEEZES, RHONCHI, RALES. HEART:NO MURMURS, REGULAR RATE AND RHYTHM. ASSESSMENTS POST LAMINECTOMY SYNDROME - M96.1 (PRIMARY), RISK: (NULL) CHRONIC PRESCRIPTION OPIATE USE - Z79.891 TREATMENT POST LAMINECTOMY SYNDROME NOTES: 75-YEAR-OLD MALE IN FOR CHRONIC PAIN FOLLOW-UP. PATIENT ASKED FOR POTENTIAL EXERCISES AND/OR EQUIPMENT TO HELP HIS POSTURE. DISCUSSED PHYSICAL THERAPY WITH PATIENT AND AT THIS TIME HE HAS DECLINED IT STATING HE WOULD LIKE TO THINK ABOUT IT MORE. GIVEN PRESENTING SYMPTOMS RECOMMENDED CONTINUATION CURRENT MEDICATION REGIMEN WITH FOLLOW-UP IN 3 MONTHS. PATIENT EXPRESSED UNDERSTANDING OF AND WAS IN AGREEMENT WITH TREATMENT PLAN. GIVEN TIME TO ASK QUESTIONS AND EXPRESS CONCERNS. , ISTOP REGISTRY REVIEWED AND DEMONSTRATES COMPLLIANCE. (REF # [id number] ) BRINGS IN MEDICATIONS WHICH IS APPROPRIATE FOR WHAT WAS DISPENSED. RECENT URINE TOXICOLOGY REVIEWED. NO UNAUTHORIZED MEDICATIONS. NO ILLICIT SUBSTANCES AND PRESCRIBED MEDICATIONS WERE PRESENT. PROCEDURE CODES FA211 ESTABILISHED PATIENT [facility] CHARGE DISPOSITION & COMMUNICATION FOLLOW UP 3 MONTHS (REASON: BACK PAIN) ELECTRONICALLY SIGNED BY PREETHI IBARRA ON 08/12/2020 AT 09:49 AM EST DISCLAIMER : THIS IS A VISIT SUMMARY EXTRACTED FROM THE [employer] CHART. IT IS NOT A COPY OF THE [employer] PROGRESS NOTE. FRANCHESKA
== END ==
LOC: M PAIN 10:30
PROVIDERS: ATTEND Family Medicine
DX: M96.1 Postlaminectomy syndrome, not elsewhere classified (principal); I10 Essential (primary) hypertension; N40.0 Benign prostatic hyperplasia without lower urinary tract symptoms; I25.10 Atherosclerotic heart disease of native coronary artery without angina pectoris; I25.2 Old myocardial infarction; Z85.46 Personal history of malignant neoplasm of prostate; Z95.5 Presence of coronary angioplasty implant and graft; Z87.891 Personal history of nicotine dependence; Z79.891 Long term (current) use of opiate analgesic; Z79.82 Long term (current) use of aspirin; Z79.899 Other long term (current) drug therapy

== ENCOUNTER → 2020-11-09 | Outpatient (CLI) | payer MEDICARE ==
--- NOTE | 2020-11-11 05:48 | ECWPNPC ---
PATIENT NAME: LOUISE PRECIADO : 1945 GENDER: MALE VISIT DATE: 11/09/2020 DISCHARGE DATE: 11/09/20 1057 VISIT LOCKED DATE TIME: PHYSICIAN: ALYSSA HERNDON RESOURCE: ALYSSA HERNDON REASON FOR APPOINTMENT 1. BACK PAIN HISTORY OF PRESENT ILLNESS GENERAL: -75-YEAR-OLD MALE IN FOR CHRONIC PAIN FOLLOW-UP. HE RATES HIS PAIN CURRENTLY AT A 2 OUT OF 10 AND DESCRIBES IT THROBBING. PATIENT FEELS THE MEDICATIONS ARE HELPFUL AND DENIES MED SIDE EFFECTS AT THIS TIME. FALL RISK SCREENING: SCREENING : NO FALLS REPORTED IN THIS YEAR. PAIN SCREENING: PATIENT HAS A COMPLAINT OF ACUTE OR CHRONIC PAIN :YES LOCATION OF PAIN:LOW BACK INTENSITY OF PAIN (SCALE OF 1 TO 10):2 WHAT DOES YOUR PAIN FEEL LIKE:THROBBING DURATION:CONTINOUS, CONSTANT, ALL DAY PAIN IS INCREASED BY:ACTIVITIES, PROLONGED STANDING PAIN IS DECREASED BY:USE OF PAIN MEDICATIONS NURSING NOTE: -. PAIN CENTER INTAKE QUESTIONS: DO YOU HAVE A HISTORY OF MRSA? :NO DO YOU TAKE A BLOOD THINNERS? :NO DO YOU HAVE ANY BLEEDING DISORDERS? :NO ANY NEW NUMBNESS OR WEAKNESS IN YOUR LEGS OR ARMS? :YES WEAKNESS AND NUMBNESS IN LEFT ARM & HAND ANY PACEMAKER,DEFIBRILLATOR, OR DORSAL COLUMN STIMULATOR? :YES HAS DORSAL COLUMN STIMULATOR AND PACEMAKER DO YOU HAVE ANY RASHES OR OPEN SORES? :NO ARE YOU ALLERGIC TO IV DYE? :NO ARE YOU DIABETIC? :NO ANY NEW PROBLEMS WITH YOUR MEDICATIONS? :NO HAVE YOU RECEIVED A VACCINE IN THE PAST 30 DAYS? :NO DO YOU PLAN TO RECEIVE A VACCINE IN THE NEXT 21 DAYS? :NO DO YOU NEED ANY PRESCRIPTION? :NO DO YOU TAKE ANY IMMUNOSUPPRESSIVE MEDICATIONS? :NO IS THERE A CHANCE YOU COULD BE ? :NO ARE YOU BREAST FEEDING? :NO CURRENT MEDICATIONS TAKING FISH OIL 1000 MG CAPSULE 1 CAPSULE ORALLY ONCE A DAY TAKING VITAMIN C 500 MG CAPSULE 2 CAPS ORALLY BID TAKING VITAMIN B-COMPLEX TABLET 1.2 ORALLY DAILY TAKING FLAX SEED OIL 1300 MG CAPSULE 1 CAP ORALLY DAILY TAKING CINNAMON PLUS CHROMIUM 200-1000 MCG-MG CAPSULE 2 CAPS ORALLY BID TAKING VITAMIN D-3 1000 UNIT CAPSULE 1 CAPSULE ORALLY ONCE A DAY TAKING TYLENOL GO TABS EXTRA STRENGTH 500 MG TABLET CHEWABLE 1 TAB(S) ORALLY EVERY 6 HRS NEEDED TAKING ASPIRIN 325 MG TABLET 1 TABLET ORALLY ONCE A DAY TAKING ATORVASTATIN CALCIUM 20 MG TABLET 1 TABLET ORALLY ONCE A DAY TAKING LEVOTHYROXINE SODIUM 100 MCG TABLET 1 TABLET ORALLY ONCE A DAY TAKING MULTIVITAMIN ADULTS - TABLET 1 TAB ORALLY DAILY TAKING COENZYME Q-10 200 MG CAPSULE 1 CAPSULE WITH A MEAL ORALLY ONCE A DAY TAKING RANEXA 500 MG TABLET EXTENDED RELEASE 12 HOUR 1 TABLET ORALLY TWICE A DAY TAKING OSTEO BI-FLEX ADV TRIPLE ST - TABLET DIRECTED ORALLY ONCE DAILY TAKING BACLOFEN 10 MG TABLET 1/2 TABLET WITH FOOD OR MILK ORALLY THREE TIMES DAILY NEEDED TAKING DOCUSATE SODIUM 100 MG CAPSULE 1 CAPSULE NEEDED ORALLY TWICE DAILY NEEDED TAKING VITAMIN E 400 UNIT CAPSULE 1 CAPSULE ORALLY ONCE A DAY TAKING KLOR-CON 10 10 MEQ TABLET EXTENDED RELEASE 1 TABLET WITH FOOD ORALLY TWICE A DAY TAKING MENS ONE DAILY TAKING ACETAMINOPHEN 500 MG CAPSULE 1 CAPSULE NEEDED ORALLY EVERY 6 HRS TAKING CRANBERRY PLUS VITAMIN C 4200-20-3 MG-MG-UNIT CAPSULE DIRECTED ORALLY TAKING FUROSEMIDE 20 MG TABLET 1 TABLET ORALLY ONCE A DAY TAKING HYDROCODONE-ACETAMINOPHEN 5-325 MG TABLET 1 TABLET NEEDED ORALLY Q8H PRN PAIN MDD3 NOT-TAKING CRANBERRY 1000 MG CAPSULE 1 CAP ORALLY DAILY NOT-TAKING METOPROLOL TARTRATE 25 MG TABLET 1/2 TABLET ORALLY BID NOT-TAKING AMIODARONE HCL 200 MG TABLET 1 TABLET ORALLY ONCE A DAY NOT-TAKING FERROUS GLUCONATE 324 (38 FE) MG TABLET 1 TAB ORALLY TWICE DAILY NOT-TAKING BENZONATATE 200 MG CAPSULE 1 CAPSULE ORALLY THREE TIMES A DAY NOT-TAKING BACLOFEN 20 MG TABLET 1/2 TABLET WITH FOOD OR MILK ORALLY BEFORE BEDTIME NEEDED NOT-TAKING TAMSULOSIN HCL 0.4 MG CAPSULE EXTENDED RELEASE 24 HOUR 1 CAPSULE 30 MINUTES AFTER THE SAME MEAL EACH DAY ORALLY ONCE A DAY NOT-TAKING FINASTERIDE 5 MG TABLET 1 TABLET ORALLY ONCE A DAY MEDICATION LIST REVIEWED AND RECONCILED WITH THE PATIENT PAST MEDICAL HISTORY MSSA SEPSIS DDD MULTIPLE BACK SURGERIES WITH DORSAL COLUMN STIMULATOR HTN BPH PROSTATITIS CAD S/P STENTS AND NM 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 SOCIAL HISTORY GENERAL: TOBACCO USE ARE YOU A:FORMER SMOKER HOW LONG HAS IT BEEN SINCE YOU LAST SMOKED?> 10 YEARS LATEX QUESTIONNAIRE LATEX ALLERGY : HAVE YOU EVER DEVELOPED ANY TYPE OF REACTION AFTER HANDLING LATEX PRODUCTS SUCH RUBBER GLOVES, CONDOMS, DIAPHRAGMS, BALLOONS, SOCKS, OR UNDERWEAR?YES BANDAGE WITH LATEX ON IT CAUSES SLIGHT SKIN IRRITATION - PLEASE INDICATE :OTHER (DOCUMENT IN NOTES) LATEX ALLERGY : HAVE YOU EVER DEVELOPED ANY TYPE OF REACTION DURING OR AFTER DENTAL APPOINTMENT, VAGINAL/RECTAL EXAMINATION, SURGICAL PROCEDURE, OR ANY OTHER EXPOSURE?NO LATEX RISK : HAVE YOU EVER HAD ANY DIFFICULTY BREATHING OR HIVES AFTER EATING OR HANDLING ANY FRUITS, OR VEGETABLES; SUCH KIWI, BANANAS, STONE FRUITS, OR CHESTNUTSNO LATEX RISK : DO YOU HAVE A PREVIOUS PERSONAL HISTORY OF MORE THAN NINE SURGERIES, SPINA BIFIDA, OR REPEATED CATHERIZATIONS? NO LATEX RISK : ARE YOU FREQUENTLY EXPOSED TO LATEX PRODUCTS IN YOUR OCCUPATION?NO DATE ASKED : 11/09/2020 ALCOHOL USE: NO. ALCOHOL SCREENING DID YOU HAVE A DRINK CONTAINING ALCOHOL IN THE PAST YEAR?NO POINTS0 INTERPRETATIONNEGATIVE RECREATIONAL DRUG USE DRUG USE?NO CAFFEINE CAFFEINE USE?YES HOW OFTEN AND HOW MUCH? 2 CUPS COFFEE/DAY PRESY[employer]ETERIAN [id number] CHRISTIAN LANGUAGE LANGUAGES SPOKEN:LITHUANIAN EDUCATION LEVEL OF EDUCATION:HIGH SCHOOL GRADUATE LEARNING BARRIERS / SPECIAL NEEDS CHANGE FROM LAST VISIT?NO BARRIERS TO LEARNING?NO HEARING IMPAIRED?YES :HEARING AIDES DECREASED HEARING VISION IMPAIRED?YES :CORRECTIVE LENSES READING COGNITIVELY IMPAIRED?NO READINESS TO LEARN?YES LEARNING PREFERENCES?YES :TAPES/VIDEOS, DEMONSTRATION/VERBAL INSTRUCTION LEARNING CAPABILITIES PRESENT?YES EMOTIONAL BARRIERS?NO SPECIAL DEVICES?NO GROCERY SUPERVISOR NEEDED?NO OCCUPATION: RETIRED. DIET: REGULAR. EXERCISE: WALKS, DAILY. MARITAL STATUS: . OTHERS AT HOME: SPOUSE. REVIEW OF SYSTEMS CONSTITUTIONAL: ANY RECENT FEVER NO . CHILLS NO . WEIGHT CHANGE OF UNKNOWN REASONS NO . GASTROENTEROLOGY: NEW UNEXPLAINABLE CHANGES IN BOWEL CONTROL NO . CONSTIPATION NO . GENITOURINARY: ANY NEW CHANGE IN BLADDER CONTROL? NO . NEUROLOGY: NEW ONSET DIZZINESS OR NEUROLOGICAL CHANGES NOT MENTIONED NO . NEW NUMBNESS OR PAIN PATTERNS NOT MENTIONED AND PERTINENT TO TODAY'S VISIT NO . CARDIOLOGY: NEW CHEST PRESSURE NO . PATIENT DENIES NO . RESPIRATORY: UNEXPLAINABLE COUGH NO . NEW SHORTNESS OF BREATH NO . EXAMINATION GENERAL EXAMINATION: GENERALNO ACUTE DISTRESS, WELL NOURISHED AND HYDRATED. PSYCHAPPROPRIATE MOOD AND AFFECT . LUNGS:CLEAR TO AUSCULTATION BILATERALLY, NO WHEEZES, RHONCHI, RALES. HEART:NO MURMURS, REGULAR RATE AND RHYTHM. 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 GIVEN PRESENTING SYMPTOMS RECOMMENDED CONTINUATION OF CURRENT MEDICATION REGIMEN WITH FOLLOW-UP IN 3 MONTHS. PATIENT HAS EXPRESSED UNDERSTANDING OF AND WAS IN AGREEMENT WITH TREATMENT PLAN. GIVEN TIME TO ASK QUESTIONS AND EXPRESS CONCERNS. , ISTOP REGISTRY REVIEWED AND DEMONSTRATES COMPLLIANCE. (REF # [id number] ) BRINGS IN MEDICATIONS WHICH IS APPROPRIATE FOR WHAT WAS DISPENSED. RECENT URINE TOXICOLOGY REVIEWED. NO UNAUTHORIZED MEDICATIONS. NO ILLICIT SUBSTANCES AND PRESCRIBED MEDICATIONS WERE PRESENT. PROCEDURE CODES FA211 ESTABILISHED PATIENT [facility] CHARGE DISPOSITION & COMMUNICATION FOLLOW UP 3 MONTHS (REASON: BACK PAIN) ELECTRONICALLY SIGNED BY PREETHI IBARRA ON 11/10/2020 AT 09:06 AM EDT DISCLAIMER : THIS IS A VISIT SUMMARY EXTRACTED FROM THE [employer] CHART. IT IS NOT A COPY OF THE [employer] PROGRESS NOTE. FRANCHESKA
== END ==
LOC: M PAIN 10:30
PROVIDERS: ATTEND Family Medicine
DX: M96.1 Postlaminectomy syndrome, not elsewhere classified (principal); Z95.0 Presence of cardiac pacemaker; Z87.891 Personal history of nicotine dependence; Z79.82 Long term (current) use of aspirin; Z79.899 Other long term (current) drug therapy

== ENCOUNTER → 2021-02-08 | Outpatient (CLI) | payer MEDICARE ==
--- NOTE | 2021-02-10 04:58 | ECWPNPC ---
PATIENT NAME: LOUISE PRECIADO : 1945 GENDER: MALE VISIT DATE: 02/08/2021 DISCHARGE DATE: 02/08/21 1042 VISIT LOCKED DATE TIME: PHYSICIAN: ALYSSA HERNDON RESOURCE: ALYSSA HERNDON REASON FOR APPOINTMENT 1. BACK PAIN HISTORY OF PRESENT ILLNESS GENERAL: HPI 75-YEAR-OLD MALE IN FOR CHRONIC PAIN FOLLOW-UP. HE RATES HIS PAIN CURRENTLY AT A 2 OUT OF 10 AND DESCRIBES IT ACHING AND CONTINUOUS. PATIENT FEELS HIS MEDICATIONS ARE HELPFUL AND DENIES MED SIDE EFFECTS AT THIS TIME.. - -. FALL RISK SCREENING: SCREENING : NO FALLS REPORTED IN THE LAST YEAR . PAIN SCREENING: PATIENT HAS A COMPLAINT OF ACUTE OR CHRONIC PAIN :YES LOCATION OF PAIN:LOW BACK INTENSITY OF PAIN (SCALE OF 1 TO 10):2 WHAT DOES YOUR PAIN FEEL LIKE:ACHING, CONTINOUS DURATION:CONTINOUS, CONSTANT, AWAKENS FROM SLEEP PAIN IS INCREASED BY:ACTIVITIES, PROLONGED STANDING PAIN IS DECREASED BY:USE OF PAIN MEDICATIONS, SITTING, OTHERS REPOSITIONING NURSING NOTE: - -. PAIN CENTER INTAKE QUESTIONS: DO YOU HAVE A HISTORY OF MRSA? :NO DO YOU TAKE A BLOOD THINNERS? :NO DO YOU HAVE ANY BLEEDING DISORDERS? :NO ANY NEW NUMBNESS OR WEAKNESS IN YOUR LEGS OR ARMS? :YES NUMBNESS IN UPPER PART OF RIGHT LEG ANY PACEMAKER,DEFIBRILLATOR, OR DORSAL COLUMN STIMULATOR? :YES HAS DORSAL COLUMN STIMULATOR AND PACEMAKER DO YOU HAVE ANY RASHES OR OPEN SORES? :NO ARE YOU ALLERGIC TO IV DYE? :NO ARE YOU DIABETIC? :NO ANY NEW PROBLEMS WITH YOUR MEDICATIONS? :NO HAVE YOU RECEIVED A VACCINE IN THE PAST 30 DAYS? :NO DO YOU PLAN TO RECEIVE A VACCINE IN THE NEXT 21 DAYS? :NO DO YOU NEED ANY PRESCRIPTION? :NO DO YOU TAKE ANY IMMUNOSUPPRESSIVE MEDICATIONS? :NO IS THERE A CHANCE YOU COULD BE ? :NO ARE YOU BREAST FEEDING? :NO CURRENT MEDICATIONS TAKING FISH OIL 1000 MG CAPSULE 1 CAPSULE ORALLY ONCE A DAY TAKING VITAMIN C 500 MG CAPSULE 2 CAPS ORALLY BID TAKING VITAMIN B-COMPLEX TABLET 1.2 ORALLY DAILY TAKING FLAX SEED OIL 1300 MG CAPSULE 1 CAP ORALLY DAILY TAKING CINNAMON PLUS CHROMIUM 200-1000 MCG-MG CAPSULE 2 CAPS ORALLY BID TAKING VITAMIN D-3 1000 UNIT CAPSULE 1 CAPSULE ORALLY ONCE A DAY TAKING TYLENOL GO TABS EXTRA STRENGTH 500 MG TABLET CHEWABLE 1 TAB(S) ORALLY EVERY 6 HRS NEEDED TAKING ASPIRIN 325 MG TABLET 1 TABLET ORALLY ONCE A DAY TAKING ATORVASTATIN CALCIUM 20 MG TABLET 1 TABLET ORALLY ONCE A DAY TAKING LEVOTHYROXINE SODIUM 100 MCG TABLET 1 TABLET ORALLY ONCE A DAY TAKING MULTIVITAMIN ADULTS - TABLET 1 TAB ORALLY DAILY TAKING COENZYME Q-10 200 MG CAPSULE 1 CAPSULE WITH A MEAL ORALLY ONCE A DAY TAKING RANEXA 500 MG TABLET EXTENDED RELEASE 12 HOUR 1 TABLET ORALLY TWICE A DAY TAKING OSTEO BI-FLEX ADV TRIPLE ST - TABLET DIRECTED ORALLY ONCE DAILY TAKING BACLOFEN 10 MG TABLET 1/2 TABLET WITH FOOD OR MILK ORALLY THREE TIMES DAILY NEEDED TAKING DOCUSATE SODIUM 100 MG CAPSULE 1 CAPSULE ONE TABLET IN MORNING, 2 TABLETS AT NIGHT ORALLY TWICE DAILY TAKING VITAMIN E 400 UNIT CAPSULE 1 CAPSULE ORALLY ONCE A DAY TAKING KLOR-CON 10 10 MEQ TABLET EXTENDED RELEASE 1 TABLET WITH FOOD ORALLY TWICE A DAY TAKING MENS ONE DAILY TAKING ACETAMINOPHEN 500 MG CAPSULE 1 CAPSULE NEEDED ORALLY EVERY 6 HRS TAKING CRANBERRY PLUS VITAMIN C 4200-20-3 MG-MG-UNIT CAPSULE DIRECTED ORALLY TAKING FUROSEMIDE 20 MG TABLET 1 TABLET ORALLY ONCE A DAY TAKING HYDROCODONE-ACETAMINOPHEN 5-325 MG TABLET 1 TABLET NEEDED ORALLY Q8H PRN PAIN MDD3 TAKING ZINC 50 MG TABLET 1 TABLET ORALLY ONCE A DAY TAKING NITROGLYCERIN 0.4 MG TABLET SUBLINGUAL DIRECTED SUBLINGUAL TAKING METOPROLOL TARTRATE 25 MG TABLET 2 TABLET ONCE IN MORNING AND ONCE AT NIGHT ORALLY FOUR TIMES DAILY NOT-TAKING CLOPIDOGREL BISULFATE 75 MG TABLET 1 TABLET ORALLY ONCE A DAY NOT-TAKING CRANBERRY 1000 MG CAPSULE 1 CAP ORALLY DAILY NOT-TAKING AMIODARONE HCL 200 MG TABLET 1 TABLET ORALLY ONCE A DAY NOT-TAKING FERROUS GLUCONATE 324 (38 FE) MG TABLET 1 TAB ORALLY TWICE DAILY NOT-TAKING BENZONATATE 200 MG CAPSULE 1 CAPSULE ORALLY THREE TIMES A DAY NOT-TAKING BACLOFEN 20 MG TABLET 1/2 TABLET WITH FOOD OR MILK ORALLY BEFORE BEDTIME NEEDED NOT-TAKING TAMSULOSIN HCL 0.4 MG CAPSULE EXTENDED RELEASE 24 HOUR 1 CAPSULE 30 MINUTES AFTER THE SAME MEAL EACH DAY ORALLY ONCE A DAY NOT-TAKING FINASTERIDE 5 MG TABLET 1 TABLET ORALLY ONCE A DAY MEDICATION LIST REVIEWED AND RECONCILED WITH THE PATIENT PAST MEDICAL HISTORY MSSA SEPSIS DDD MULTIPLE BACK SURGERIES WITH DORSAL COLUMN STIMULATOR HTN BPH PROSTATITIS CAD S/P STENTS AND NV 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 SOCIAL HISTORY GENERAL: TOBACCO USE ARE YOU A:FORMER SMOKER HOW LONG HAS IT BEEN SINCE YOU LAST SMOKED?> 10 YEARS LATEX QUESTIONNAIRE LATEX ALLERGY : HAVE YOU EVER DEVELOPED ANY TYPE OF REACTION AFTER HANDLING LATEX PRODUCTS SUCH RUBBER GLOVES, CONDOMS, DIAPHRAGMS, BALLOONS, SOCKS, OR UNDERWEAR?YES BANDAGE WITH LATEX ON IT CAUSES SLIGHT SKIN IRRITATION - PLEASE INDICATE :OTHER (DOCUMENT IN NOTES) LATEX ALLERGY : HAVE YOU EVER DEVELOPED ANY TYPE OF REACTION DURING OR AFTER DENTAL APPOINTMENT, VAGINAL/RECTAL EXAMINATION, SURGICAL PROCEDURE, OR ANY OTHER EXPOSURE?NO LATEX RISK : HAVE YOU EVER HAD ANY DIFFICULTY BREATHING OR HIVES AFTER EATING OR HANDLING ANY FRUITS, OR VEGETABLES; SUCH KIWI, BANANAS, STONE FRUITS, OR CHESTNUTSNO LATEX RISK : DO YOU HAVE A PREVIOUS PERSONAL HISTORY OF MORE THAN NINE SURGERIES, SPINA BIFIDA, OR REPEATED CATHERIZATIONS? NO LATEX RISK : ARE YOU FREQUENTLY EXPOSED TO LATEX PRODUCTS IN YOUR OCCUPATION?NO DATE ASKED : 02/08/2021 ALCOHOL USE: NO. ALCOHOL SCREENING DID YOU HAVE A DRINK CONTAINING ALCOHOL IN THE PAST YEAR?NO POINTS0 INTERPRETATIONNEGATIVE RECREATIONAL DRUG USE DRUG USE?NO CAFFEINE CAFFEINE USE?YES HOW OFTEN AND HOW MUCH? 2 CUPS COFFEE/DAY TEMPLE [id number] [employer] LANGUAGE LANGUAGES SPOKEN:FILIPINO EDUCATION LEVEL OF EDUCATION:HIGH SCHOOL GRADUATE LEARNING BARRIERS / SPECIAL NEEDS CHANGE FROM LAST VISIT?NO BARRIERS TO LEARNING?NO HEARING IMPAIRED?YES :HEARING AIDES DECREASED HEARING VISION IMPAIRED?YES :CORRECTIVE LENSES READING COGNITIVELY IMPAIRED?NO READINESS TO LEARN?YES LEARNING PREFERENCES?YES :TAPES/VIDEOS, DEMONSTRATION/VERBAL INSTRUCTION LEARNING CAPABILITIES PRESENT?YES EMOTIONAL BARRIERS?NO SPECIAL DEVICES?NO FISCAL CLERK NEEDED?NO OCCUPATION: RETIRED. DIET: REGULAR. EXERCISE: WALKS, DAILY. MARITAL STATUS: . OTHERS AT HOME: SPOUSE. REVIEW OF SYSTEMS CONSTITUTIONAL: ANY RECENT FEVER NO . CHILLS NO . WEIGHT CHANGE OF UNKNOWN REASONS NO . GASTROENTEROLOGY: NEW UNEXPLAINABLE CHANGES IN BOWEL CONTROL NO . CONSTIPATION NO . GENITOURINARY: ANY NEW CHANGE IN BLADDER CONTROL? NO . NEUROLOGY: NEW ONSET DIZZINESS OR NEUROLOGICAL CHANGES NOT MENTIONED NO . NEW NUMBNESS OR PAIN PATTERNS NOT MENTIONED AND PERTINENT TO TODAY'S VISIT NO . CARDIOLOGY: NEW CHEST PRESSURE NO . PATIENT DENIES NO . RESPIRATORY: UNEXPLAINABLE COUGH NO . NEW SHORTNESS OF BREATH NO . VITAL SIGNS WT 233.6 LBS, HT 72 IN, BMI 31.68 INDEX, BP 111/63 MM HG, HR 71 /MIN, RR 18 /MIN, TEMP 98.2 F, OXYGEN SAT % 96%, SAFE IN ENV? (Y/N) YES, NA INITIALS SC 10:14, REVIEWED BY: MARHTA JUAREZ MA. EXAMINATION GENERAL EXAMINATION: GENERALNO ACUTE DISTRESS, WELL NOURISHED AND HYDRATED. PSYCHAPPROPRIATE MOOD AND AFFECT . LUNGS:CLEAR TO AUSCULTATION BILATERALLY, NO WHEEZES, RHONCHI, RALES. HEART:NO MURMURS, REGULAR RATE AND RHYTHM. 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 GIVEN PRESENTING SYMPTOMS RECOMMEND CONTINUATION OF CURRENT MEDICATION REGIMEN WITH FOLLOW-UP IN 3 MONTHS. PATIENT HAS EXPRESSED UNDERSTANDING OF AND WAS IN AGREEMENT WITH TREATMENT PLAN. GIVEN TIME TO ASK QUESTIONS AND EXPRESS CONCERNS. ISTOP REGISTRY REVIEWED AND DEMONSTRATES COMPLLIANCE. (REF # [id number] ) BRINGS IN MEDICATIONS WHICH IS APPROPRIATE FOR WHAT WAS DISPENSED. RECENT URINE TOXICOLOGY REVIEWED. NO UNAUTHORIZED MEDICATIONS. NO ILLICIT SUBSTANCES AND PRESCRIBED MEDICATIONS WERE PRESENT. PROCEDURE CODES FA211 ESTABILISHED PATIENT [facility] CHARGE DISPOSITION & COMMUNICATION FOLLOW UP 3 MONTHS (REASON: BACK PAIN) ELECTRONICALLY SIGNED BY PREETHI IBARRA ON 02/09/2021 AT 08:22 AM EDT DISCLAIMER : THIS IS A VISIT SUMMARY EXTRACTED FROM THE [employer] CHART. IT IS NOT A COPY OF THE [employer] PROGRESS NOTE. FRANCHESKA
== END ==
LOC: M PAIN 10:15
PROVIDERS: ATTEND Family Medicine
DX: M96.1 Postlaminectomy syndrome, not elsewhere classified (principal); I10 Essential (primary) hypertension; N40.0 Benign prostatic hyperplasia without lower urinary tract symptoms; I25.10 Atherosclerotic heart disease of native coronary artery without angina pectoris; Z95.0 Presence of cardiac pacemaker; Z85.46 Personal history of malignant neoplasm of prostate; Z79.891 Long term (current) use of opiate analgesic; Z87.891 Personal history of nicotine dependence; Z79.82 Long term (current) use of aspirin; Z79.899 Other long term (current) drug therapy

== ENCOUNTER → 2021-05-12 | Outpatient (CLI) | payer MEDICARE | LOC: M PAIN 10:15 | PROVIDERS: ATTEND Anesthesiology | DX: M96.1 Postlaminectomy syndrome, not elsewhere classified (principal); M51.16 Intervertebral disc disorders with radiculopathy, lumbar region; E03.9 Hypothyroidism, unspecified; Z95.0 Presence of cardiac pacemaker; Z87.891 Personal history of nicotine dependence; Z79.82 Long term (current) use of aspirin; Z79.899 Other long term (current) drug therapy ==

== ENCOUNTER → 2021-06-02 | Outpatient (CLI) | payer MEDICARE ==
[~2021-06-02] MED LIST changes: +GASTROGRAFIN SOLUTION 30ML (Q9963) As Ordered ONE; +ISOVUE-370 76% 100ML VIAL As Ordered ONE
--- NOTE | 2021-06-02 11:54 | REP ---
INDICATION: MAL ROCKY OF PROSTATE NM 1ST CT 2ND. COMPARISON: 04/04/2014 the latest prior TECHNIQUE: Standard helical technique after the intravenous administration of 100 cc Isovue 370. Oral bowel preparatory contrast was also administered prior to the exam. FINDINGS: Liver, gallbladder, spleen, pancreas, adrenal glands, and kidneys are unchanged. The abdominal aorta and para-aortic regions are unchanged. The bowel loops and the mesenteries are essentially unchanged. There is no mass or adenopathy. There is no free fluid or free air. Bone window technique throughout the examination again shows advanced spinal and discogenic degenerative changes. These have increased compared to the prior exam. IMPRESSION: There has been no significant change compared to the prior exam. There is cholelithiasis status quo. The prostate gland is not seen today,, there are no pelvic surgical clips. I have been given no history. The patient may have had TURP. There is no evidence of acute disease. <Electronically signed by Rojas De La Garza > 06/02/21 [id number]
--- NOTE | 2021-06-02 12:02 | REP ---
INDICATION: MAL ROCKY OF PROSTATE NM 1ST CT 2ND COMPARISON: None. TECHNIQUE: Standard helical technique after the intravenous administration of 100 cc Isovue 370 FINDINGS: There is a 1.7 cm sized lymph node in the aortic pulmonary window. Other smaller mediastinal and hilar lymph nodes are evident. There are no pleural or pericardial effusions. There is an area of sclerosis/blastic density involving the proximal left 11th rib. This represents a change compared to the prior abdominal CT of 04/04/2014 which is the latest prior of that region for comparison. Advanced chronic appearing spinal degenerative changes and discogenic changes are identified. Evaluation of the lung baker shows biapical pleuroparenchymal scarring. No abnormal nodules, masses, or opacities are evident. IMPRESSION: 1. Left rib lesion as described above. Exact etiology uncertain. Consider total body bone scan. 2. Mediastinal adenopathy as described above. Etiology uncertain. Close follow-up is suggested. 3. Other findings as described <Electronically signed by Rojas De La Garza > 06/02/21 [id number]
--- NOTE | 2021-06-06 11:13 | REP ---
INDICATION: MAL ROCKY OF PROSTATE NM 1ST CT 2ND. COMPARISON: 09/07/2020 from an outside institution TECHNIQUE/RADIOTRACER AND DOSE: After the intravenous administration of 22.0 mCi of technetium 99 M MDP a total body bone scan was obtained. FINDINGS: Increased activity is seen in T12. Patchy increased activity seen in the shoulders, knees, ankles, and feet. Focal increased activity is seen in the sternoclavicular joint bilaterally. No new areas of increased activity have developed in the imaged axial or appendicular skeleton since the last exam. IMPRESSION: Similar areas of increased activity seen today as on the prior bone scan of 09/07/2020. Once again, there is increased activity seen in T12. Previous CT of the abdomen and pelvis of 06/02/2021 was reviewed using bone window technique. That examination showed rather extensive appearing degenerative changes at T12-L1 with discogenic changes. That was felt to be relatively stable compared to an older CT examination of 05/04/2014. Today's examination shows no compelling evidence for metastatic disease, however, MRI examination of the thoracolumbar spine with gadolinium enhancement should be considered. <Electronically signed by Rojas De La Garza > 06/06/21 [id number]
== END ==
LOC: M RAD 09:17
PROVIDERS: ATTEND Urology
DX: C61 Malignant neoplasm of prostate (principal); M89.9 Disorder of bone, unspecified; R59.0 Localized enlarged lymph nodes
CPT/HCPCS: 71260; 74177; 78306; A9503; Q9963; Q9967

== ENCOUNTER → 2021-08-04 | Outpatient (CLI) | payer MEDICARE ==
[~2021-08-04] MED LIST changes: -GASTROGRAFIN SOLUTION 30ML (Q9963) As Ordered ONE; -ISOVUE-370 76% 100ML VIAL As Ordered ONE
== END ==
LOC: M PAIN 10:15
PROVIDERS: ATTEND Anesthesiology
DX: M47.816 Spondylosis without myelopathy or radiculopathy, lumbar region (principal); G89.29 Other chronic pain; E03.9 Hypothyroidism, unspecified; Z96.89 Presence of other specified functional implants; Z95.0 Presence of cardiac pacemaker; Z87.891 Personal history of nicotine dependence; Z79.82 Long term (current) use of aspirin; Z79.899 Other long term (current) drug therapy

== ENCOUNTER → 2021-09-20 | Outpatient (CLI) | payer OTHER | LOC: M PAIN 11:00 | PROVIDERS: ATTEND Nurse Practitioner Family | DX: M47.816 Spondylosis without myelopathy or radiculopathy, lumbar region (principal); G89.29 Other chronic pain; Z96.89 Presence of other specified functional implants; Z95.0 Presence of cardiac pacemaker; Z87.891 Personal history of nicotine dependence; Z79.82 Long term (current) use of aspirin; Z79.899 Other long term (current) drug therapy ==

== ENCOUNTER → 2021-12-06 | Outpatient (CLI) | payer OTHER | LOC: M ONCR 15:13 | PROVIDERS: ATTEND General Practice | DX: C61 Malignant neoplasm of prostate (principal); M54.9 Dorsalgia, unspecified; Z79.82 Long term (current) use of aspirin; Z80.0 Family history of malignant neoplasm of digestive organs; Z88.5 Allergy status to narcotic agent; Z92.3 Personal history of irradiation; Z96.89 Presence of other specified functional implants ==

== ENCOUNTER → 2021-12-21 | Outpatient (CLI) | payer OTHER | LOC: M PAIN 10:45 | PROVIDERS: ATTEND Nurse Practitioner Family | DX: M47.816 Spondylosis without myelopathy or radiculopathy, lumbar region (principal); M96.1 Postlaminectomy syndrome, not elsewhere classified; G89.29 Other chronic pain; E07.9 Disorder of thyroid, unspecified; Z96.89 Presence of other specified functional implants; Z95.0 Presence of cardiac pacemaker; Z87.891 Personal history of nicotine dependence; Z79.82 Long term (current) use of aspirin; Z79.899 Other long term (current) drug therapy ==

== ENCOUNTER 2022-01-11 14:00 | Outpatient (RCR) | payer OTHER | END 2022-01-12 | LOC: M ONCR 14:00 | PROVIDERS: ATTEND General Practice | DX: C61 Malignant neoplasm of prostate (principal) ==

== ENCOUNTER → 2022-03-27 | Outpatient (CLI) | payer OTHER | LOC: M RAD 12:45 | PROVIDERS: ATTEND General Practice | DX: C61 Malignant neoplasm of prostate (principal) ==

== ENCOUNTER → 2022-04-13 | Outpatient (CLI) | payer OTHER | LOC: M ONCR 14:14 | PROVIDERS: ATTEND General Practice | DX: C61 Malignant neoplasm of prostate (principal); R10.2 Pelvic and perineal pain; R23.2 Flushing; Z79.02 Long term (current) use of antithrombotics/antiplatelets; Z79.818 Long term (current) use of other agents affecting estrogen receptors and estrogen levels; Z79.82 Long term (current) use of aspirin; Z79.891 Long term (current) use of opiate analgesic; Z79.899 Other long term (current) drug therapy; Z92.3 Personal history of irradiation; Z90.79 Acquired absence of other genital organ(s) ==

== ENCOUNTER → 2022-04-26 | Outpatient (CLI) | payer OTHER | LOC: M TMPAIN 11:45 → M PAIN 11:45 | PROVIDERS: ATTEND Anesthesiology | DX: M47.816 Spondylosis without myelopathy or radiculopathy, lumbar region (principal); G89.29 Other chronic pain; I10 Essential (primary) hypertension; E03.9 Hypothyroidism, unspecified; Z95.0 Presence of cardiac pacemaker; Z96.89 Presence of other specified functional implants; Z87.891 Personal history of nicotine dependence; Z79.82 Long term (current) use of aspirin; Z79.890 Hormone replacement therapy; Z79.899 Other long term (current) drug therapy ==

== ENCOUNTER → 2022-05-04 | Outpatient (CLI) | payer OTHER ==
[~2022-05-04] MED LIST changes: +GASTROGRAFIN SOLUTION 30ML (Q9963) As Ordered ONE
== END ==
LOC: M RAD 12:53
PROVIDERS: ATTEND Urology
DX: C61 Malignant neoplasm of prostate (principal); M48.9 Spondylopathy, unspecified; Z95.0 Presence of cardiac pacemaker
CPT/HCPCS: 74176; Q9963

== ENCOUNTER → 2022-06-01 | Outpatient (CLI) | payer OTHER ==
[~2022-06-01] MED LIST changes: +CLOP75TA99 PO; -GASTROGRAFIN SOLUTION 30ML (Q9963) As Ordered ONE; -PLAV1TAB2 PO
== END ==
LOC: M PAIN 10:15
PROVIDERS: ATTEND Nurse Practitioner Family
DX: M47.816 Spondylosis without myelopathy or radiculopathy, lumbar region (principal); G89.29 Other chronic pain; I10 Essential (primary) hypertension; E03.9 Hypothyroidism, unspecified; Z96.89 Presence of other specified functional implants; Z95.0 Presence of cardiac pacemaker; Z87.891 Personal history of nicotine dependence; Z79.82 Long term (current) use of aspirin; Z79.890 Hormone replacement therapy; Z79.899 Other long term (current) drug therapy

== ENCOUNTER → 2022-07-31 | Outpatient (CLI) | payer OTHER | LOC: M PAIN 11:00 | PROVIDERS: ATTEND Nurse Practitioner Family | DX: M96.1 Postlaminectomy syndrome, not elsewhere classified (principal); M79.10 Myalgia, unspecified site; G89.29 Other chronic pain; I10 Essential (primary) hypertension; E03.9 Hypothyroidism, unspecified; Z95.0 Presence of cardiac pacemaker; Z96.89 Presence of other specified functional implants; Z87.891 Personal history of nicotine dependence; Z79.82 Long term (current) use of aspirin; Z79.890 Hormone replacement therapy; Z79.899 Other long term (current) drug therapy ==

== ENCOUNTER → 2022-08-10 | Outpatient (CLI) | payer OTHER ==
[~2022-08-10] MED LIST changes: +GASTROGRAFIN SOLUTION 30ML As Ordered ONE
== END ==
LOC: M RAD 08:32
PROVIDERS: ATTEND Urology
DX: C61 Malignant neoplasm of prostate (principal); Z90.79 Acquired absence of other genital organ(s)
CPT/HCPCS: 74176; Q9963

== ENCOUNTER → 2022-11-30 | Outpatient (CLI) | payer OTHER ==
[~2022-11-30] MED LIST changes: -GASTROGRAFIN SOLUTION 30ML As Ordered ONE
== END ==
LOC: M PAIN 11:30
PROVIDERS: ATTEND Nurse Practitioner Family
DX: M47.816 Spondylosis without myelopathy or radiculopathy, lumbar region (principal); G89.29 Other chronic pain; I10 Essential (primary) hypertension; Z95.0 Presence of cardiac pacemaker; Z87.891 Personal history of nicotine dependence; Z79.82 Long term (current) use of aspirin; Z79.899 Other long term (current) drug therapy

== ENCOUNTER → 2023-01-17 | Outpatient (CLI) | payer OTHER | LOC: M PAIN 16:00 | PROVIDERS: ATTEND Anesthesiology | DX: M96.1 Postlaminectomy syndrome, not elsewhere classified (principal); M51.16 Intervertebral disc disorders with radiculopathy, lumbar region; G89.29 Other chronic pain; T85.192A Other mechanical complication of implanted electronic neurostimulator of spinal cord electrode (lead), initial encounter; I10 Essential (primary) hypertension; Z95.0 Presence of cardiac pacemaker; Z96.89 Presence of other specified functional implants; Z87.891 Personal history of nicotine dependence; Z79.899 Other long term (current) drug therapy ==

== ENCOUNTER → 2023-01-23 | Outpatient (CLI) | payer OTHER | LOC: M WHC 09:09 | PROVIDERS: ATTEND Nurse Practitioner Family | DX: C61 Malignant neoplasm of prostate (principal); C77.5 Secondary and unspecified malignant neoplasm of intrapelvic lymph nodes; Z79.899 Other long term (current) drug therapy ==

== ENCOUNTER → 2023-01-29 | Outpatient (CLI) | payer OTHER | LOC: M WHC 08:34 | PROVIDERS: ATTEND Nurse Practitioner Family | DX: M89.9 Disorder of bone, unspecified (principal); C61 Malignant neoplasm of prostate; C77.5 Secondary and unspecified malignant neoplasm of intrapelvic lymph nodes; Z79.899 Other long term (current) drug therapy ==

== ENCOUNTER → 2023-03-13 | Outpatient (CLI) | payer OTHER | LOC: M PAIN 11:00 | PROVIDERS: ATTEND Nurse Practitioner Family | DX: M47.816 Spondylosis without myelopathy or radiculopathy, lumbar region (principal); G89.29 Other chronic pain; I10 Essential (primary) hypertension; Z95.0 Presence of cardiac pacemaker; Z87.891 Personal history of nicotine dependence; Z79.82 Long term (current) use of aspirin; Z79.899 Other long term (current) drug therapy ==

== ENCOUNTER → 2023-05-21 | Outpatient (CLI) | payer OTHER | LOC: M PAIN 11:15 | PROVIDERS: ATTEND Nurse Practitioner Family | DX: M79.10 Myalgia, unspecified site (principal); M96.1 Postlaminectomy syndrome, not elsewhere classified; G89.29 Other chronic pain; Z95.0 Presence of cardiac pacemaker; Z85.46 Personal history of malignant neoplasm of prostate; Z87.891 Personal history of nicotine dependence; Z79.82 Long term (current) use of aspirin; Z79.899 Other long term (current) drug therapy ==

== ENCOUNTER → 2023-08-21 | Outpatient (CLI) | payer OTHER | LOC: M PAIN 11:00 | PROVIDERS: ATTEND Nurse Practitioner Family | DX: M96.1 Postlaminectomy syndrome, not elsewhere classified (principal); G89.29 Other chronic pain; I10 Essential (primary) hypertension; N40.0 Benign prostatic hyperplasia without lower urinary tract symptoms; I25.10 Atherosclerotic heart disease of native coronary artery without angina pectoris; Z85.46 Personal history of malignant neoplasm of prostate; Z95.0 Presence of cardiac pacemaker; N52.9 Male erectile dysfunction, unspecified; E07.9 Disorder of thyroid, unspecified; Z87.891 Personal history of nicotine dependence; Z79.82 Long term (current) use of aspirin; Z79.891 Long term (current) use of opiate analgesic; Z79.899 Other long term (current) drug therapy ==

== ENCOUNTER → 2023-11-19 | Outpatient (CLI) | payer OTHER | LOC: M PAIN 11:00 | PROVIDERS: ATTEND Nurse Practitioner Family | DX: M96.1 Postlaminectomy syndrome, not elsewhere classified (principal); G89.29 Other chronic pain; M54.50 Low back pain, unspecified; I10 Essential (primary) hypertension; I25.10 Atherosclerotic heart disease of native coronary artery without angina pectoris; I25.2 Old myocardial infarction; N52.9 Male erectile dysfunction, unspecified; E07.9 Disorder of thyroid, unspecified; Z85.46 Personal history of malignant neoplasm of prostate; Z95.0 Presence of cardiac pacemaker; Z87.891 Personal history of nicotine dependence; Z79.890 Hormone replacement therapy; Z79.891 Long term (current) use of opiate analgesic; Z79.899 Other long term (current) drug therapy ==

== ENCOUNTER → 2024-01-21 | Outpatient (CLI) | payer OTHER ==
[~2024-01-21] MED LIST changes: +ACET650T15 PO; +ASPI81TA26 PO; +CEPH500C PO; +CYAN-1 PO; +FURO20TA2 PO; +GABA-282 PO; +HYDR2.5C21 TOP; +ISOS1TAB35 PO; +LEVO137T2 PO; +METO1TAB87 PO; +OMEG10002 PO; +ONDA-83 PO; +POTA-136 PO; +SLOW160T12 PO; +VITA400T26 PO
== END ==
LOC: M PAIN 16:00
PROVIDERS: ATTEND Nurse Practitioner Family
DX: M96.1 Postlaminectomy syndrome, not elsewhere classified (principal); G89.29 Other chronic pain; I10 Essential (primary) hypertension; N40.0 Benign prostatic hyperplasia without lower urinary tract symptoms; I25.10 Atherosclerotic heart disease of native coronary artery without angina pectoris; E07.9 Disorder of thyroid, unspecified; Z95.0 Presence of cardiac pacemaker; Z87.891 Personal history of nicotine dependence; Z79.890 Hormone replacement therapy; Z79.891 Long term (current) use of opiate analgesic; Z79.899 Other long term (current) drug therapy

== ENCOUNTER → 2024-02-04 | Outpatient (CLI) | payer OTHER | LOC: M PAIN 16:30 | PROVIDERS: ATTEND Nurse Practitioner Family | DX: M96.1 Postlaminectomy syndrome, not elsewhere classified (principal); G89.29 Other chronic pain; I10 Essential (primary) hypertension; N40.1 Benign prostatic hyperplasia with lower urinary tract symptoms; I25.10 Atherosclerotic heart disease of native coronary artery without angina pectoris; I25.2 Old myocardial infarction; Z85.46 Personal history of malignant neoplasm of prostate; Z95.5 Presence of coronary angioplasty implant and graft; N39.44 Nocturnal enuresis; Z79.82 Long term (current) use of aspirin; Z79.891 Long term (current) use of opiate analgesic; Z79.899 Other long term (current) drug therapy; Z79.890 Hormone replacement therapy; Z95.0 Presence of cardiac pacemaker ==

== ENCOUNTER → 2024-03-06 | Outpatient (CLI) | payer OTHER | LOC: M PAIN 10:45 | PROVIDERS: ATTEND Nurse Practitioner Family | DX: M96.1 Postlaminectomy syndrome, not elsewhere classified (principal); G89.29 Other chronic pain; I10 Essential (primary) hypertension; N40.0 Benign prostatic hyperplasia without lower urinary tract symptoms; I25.10 Atherosclerotic heart disease of native coronary artery without angina pectoris; I25.2 Old myocardial infarction; N52.9 Male erectile dysfunction, unspecified; E07.9 Disorder of thyroid, unspecified; Z95.5 Presence of coronary angioplasty implant and graft; Z85.46 Personal history of malignant neoplasm of prostate; Z87.891 Personal history of nicotine dependence; Z79.82 Long term (current) use of aspirin; Z79.891 Long term (current) use of opiate analgesic; Z79.899 Other long term (current) drug therapy ==

== ENCOUNTER → 2024-06-17 | Outpatient (CLI) | payer OTHER ==
[~2024-06-17] MED LIST changes: +GABA-1172 PO; -GABA-282 PO
== END ==
LOC: M PAIN 13:00
PROVIDERS: ATTEND Nurse Practitioner Family
DX: M96.1 Postlaminectomy syndrome, not elsewhere classified (principal); Z79.891 Long term (current) use of opiate analgesic; G89.29 Other chronic pain; N40.1 Benign prostatic hyperplasia with lower urinary tract symptoms; I25.10 Atherosclerotic heart disease of native coronary artery without angina pectoris; E07.9 Disorder of thyroid, unspecified; N39.44 Nocturnal enuresis; Z87.891 Personal history of nicotine dependence; Z79.890 Hormone replacement therapy; Z79.899 Other long term (current) drug therapy; Z95.0 Presence of cardiac pacemaker; Z85.46 Personal history of malignant neoplasm of prostate

== ENCOUNTER → 2024-07-08 | Outpatient (CLI) | payer OTHER | LOC: M PAIN 09:15 | PROVIDERS: ATTEND Anesthesiology | DX: M96.1 Postlaminectomy syndrome, not elsewhere classified (principal); M51.16 Intervertebral disc disorders with radiculopathy, lumbar region; G89.29 Other chronic pain; Z79.891 Long term (current) use of opiate analgesic; I25.10 Atherosclerotic heart disease of native coronary artery without angina pectoris; E07.9 Disorder of thyroid, unspecified; N39.44 Nocturnal enuresis; N40.0 Benign prostatic hyperplasia without lower urinary tract symptoms; Z87.891 Personal history of nicotine dependence; Z79.890 Hormone replacement therapy; Z79.899 Other long term (current) drug therapy; Z95.0 Presence of cardiac pacemaker; Z85.46 Personal history of malignant neoplasm of prostate ==

== ENCOUNTER → 2024-08-11 | Outpatient (CLI) | payer MEDICARE | LOC: M PAIN 10:00 | PROVIDERS: ATTEND Nurse Practitioner Family | DX: M96.1 Postlaminectomy syndrome, not elsewhere classified (principal); Z79.891 Long term (current) use of opiate analgesic; G89.29 Other chronic pain; I10 Essential (primary) hypertension; E07.9 Disorder of thyroid, unspecified; Z87.891 Personal history of nicotine dependence; Z79.82 Long term (current) use of aspirin; Z79.899 Other long term (current) drug therapy ==

== ENCOUNTER → 2025-03-26 | Outpatient (REF) | payer MEDICARE ==
[~2025-03-26] MED LIST changes: +ACET-1515 PO; -ACET650T15 PO; -FLOM0.4C39 PO; +TAMS-18 PO
[2025-03-26 11:13] LABS: BASO # 0.0 10^3/uL (0.0-0.2); BASO % 0.6 % (0.0-1.0); EOS # 0.1 10^3/uL (0.0-0.5); EOS % 2.0 % (0.0-3.0); LYMPH # 2.2 10^3/uL (1.5-5.0); LYMPH % 31.8 % (24.0-44.0); MONO # 0.8 10^3/uL (0.0-0.8); MONO % 10.9 % (2.0-8.0); NEUTROPHILS # 3.7 10^3/uL (1.5-8.5); NEUTROPHILS % 54.4 % (36.0-66.0); PLATELET COUNT, AUTOMATED 259 10^3/uL (150-450)
[2025-03-26 11:24] LABS: ERYTHROCYTE SEDIMENTATION RATE 45 mm/hr (0-20)
[2025-03-26 11:55] LABS: C REACTIVE PROTEIN QUANTITATIV 0.53 MG/DL (<1.0)
[2025-03-26 11:56] LABS: ALT/SGPT 9 U/L (7.0-40); AST/SGOT 24 U/L (<34); CALCIUM LEVEL 9.9 MG/DL (8.3-10.6); CARBON DIOXIDE LEVEL 29 MMOL/L (20-31); CHLORIDE LEVEL 102 MMOL/L (98-107); CREATININE FOR GFR 1.08 MG/DL (0.70-1.30); GLOMERULAR FILTRATION RATE 70.2 (>42); POTASSIUM SERUM 5.0 MMOL/L (3.5-5.1); SODIUM LEVEL 141 MMOL/L (136-145)
== END ==
LOC: M SFHCPLAZ 09:24
PROVIDERS: ATTEND Internal Medicine Infectious Disease
DX: B95.61 Methicillin susceptible Staphylococcus aureus infection as the cause of diseases classified elsewhere (principal)